=== PATIENT | female | born 1945 | race Caucasian/White ===

== ENCOUNTER 2017-12-19 00:21 | Emergency (ER) | payer BC, OTHER ==
[2017-12-19 00:37] VITALS: BMI 22.8
--- NOTE | 2017-12-19 00:57 | DR.GENAD ---
HPI - PCP Primary Care Physician: Antonette Pelayo - Complaint/Symptoms Chief Complaint Doctors Comments: Son reports that went to the bathroom and was found by hims once he heard a loud noise. She was found laying on her side with no abnormal movement responsive to queston he walked back to the living room and called EMS. The episode lasted less than 3 minutes. 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 Upon arrival to residence, patient was found to be alert. O2 saturation was 98% on room air. Family reports patient had difficulty breathing and confusion with syncopal episode. Patient was transported to hospital for further evaluation. Patient is alert and oriented on arrival to ER and is cooperative. She is a good historian and reports she has been having stomach "trouble" for some time. Patient reports abdominal cramping; however, none tonight. - Source History Provided: EMS - Mode of Arrival Mode of Arrival: Stretcher - Timing Onset of Chief Complaint: 12/19/17 PMH - PMH Past Medical History: Yes Past Medical History: Coronary Artery Disease, Dyslipidemia, Depression, Anxiety , Hypothyroidism, COPD Past Surgical History: Yes Surgical History: Appendectomy, CABG/Valve Surgery, Cholecystectomy, Hysterectomy - Family History History of Family Medical Conditions: Yes Family Medical History: [place], Coronary Artery Disease, Heart Failure, Hypertension - Social History Type of Tobacco Use: None Alcohol Use: None Do you use any recreational Drugs:: No Lives With: Family Lives Where: Home - infectious screening In the last 2 months have you had wt loss of >10#?: NO Have you had fever, night sweats or hemotysis?: No Have you traveled outside the country in the last 6 months?: No Isolation: Standard ROS - Review of Systems Constitutional: No Symptoms Reported Eyes: No Symptoms Reported ENTM: No Symptoms Reported Respiratoy: No Symptoms Reported Cardiovascular: No Symptoms Reported Gastrointestinal/Abdominal: No Symptoms Reported Genitourinary: No Symptoms Reported Neurological: No Symptoms Reported Musculoskeletal: No Symptoms Reported Integumentary: No Symptoms Reported Hematologic/Lymphatic: No Symptoms Reported Endocrine: No Symptoms Reported Psychiatric: No Symptoms Reported All Other Systems: Reviewed and Negative PE - Vital Signs Vitals: Temperature 96.8 F Pulse Rate [Left Brachial] 68 Pulse Rate 66 Respiratory Rate 22 Blood Pressure [Right Arm] 118/59 Blood Pressure [Left Arm] 146/64 Blood Pressure 130/60 O2 Sat by Pulse Oximetry 95 - General Limitations: No Limitations General Appearance: In No Apparent Distress - Head Head Exam: Normal Inspection, Atraumatic - Eyes Eye exam: Normal Appearance, PERRL, EOMI - ENT ENT Exam: Normal Exam External Ear Exam: Normal External Inspection TM/Canal Exam: Bilateral Normal Nose Exam: Normal Nose Exam, Sinus Tenderness Mouth Exam: Normal Inspection Throat Exam: Normal Inspection - Neck Neck Exam: Normal Inspection, Full ROM - Chest Chest Inspection: Normal Inspection - Respiratory Respiratory Exam: Normal Lung Sounds Bilat Respiratory Exam: Bilateral Clear to Auscultation - Cardiovascular Cardiovascular Exam: Regular Rate, Normal Rhythm - Abdominal Exam Abdominal Exam: Normal Inspection, Normal Bowel Sounds Abdominal Tenderness: negative: RUQ, RLQ, LUQ, LLQ, Epigastrium, Suprapubic, Diffuse, Mild, Moderate, Severe, Other - Extremities Extremities Exam: Normal Inspection, Full ROM - Back Back Exam: Normal Inspection - Neurologic Neurological Exam: Alert, Oriented X3, CN II-XII Intact - Psychiatric Psychiatric Exam: Normal Affect - Skin Skin Exam: Warm, Dry, Intact Course - Treatment Treatment: Patient offered admission for observation but declined. Daughter is a nurse, said if anything happens will return. - Reevaluation 1st: Improved ROR - Labs Reviewed Result Diagrams: 12/19/17 01:05 12/19/17 01:05 Laboratory: WBC 6.8 X10^3/uL (3.6-10.0) 12/19/17 01:05 RBC 4.73 X10^6/uL (3.5-5.4) 12/19/17 01:05 Hgb 14.8 g/dL (12.0-16.0) 12/19/17 01:05 Hct 42.9 % (36.0-47.0) 12/19/17 01:05 MCV 90.8 fL (80.0-100.0) 12/19/17 01:05 MCH 31.3 pg (27.0-34.0) 12/19/17 01:05 MCHC 34.5 g/dL (33.0-35.0) 12/19/17 01:05 RDW 13.9 % (11.6-16.5) 12/19/17 01:05 Plt Count 240 X10^3/uL (150.0-450.0) 12/19/17 01:05 MPV 8.3 fL (7.4-11.0) 12/19/17 01:05 Neut % 54.0 % (42.0-75.0) 12/19/17 01:05 Lymph % 34.6 % (21.0-51.0) 12/19/17 01:05 [place]ill % 7.0 % (0.0-13.0) 12/19/17 01:05 Eos % 2.7 % (0.9-2.9) 12/19/17 01:05 Baso % 1.7 % (0.2-1.0) H 12/19/17 01:05 Neut # 3.7 x10^3/uL (2.2-4.8) 12/19/17 01:05 Lymph # 2.4 X10^3/uL (1.3-2.9) 12/19/17 01:05 [place]ill # 0.5 x10^3/uL (0.3-0.8) 12/19/17 01:05 Eos # 0.2 x10^3/uL (0.0-0.2) 12/19/17 01:05 Baso # 0.1 X10^3/uL (0.0-0.1) 12/19/17 01:05 Absolute Nucleated RBC 0.0 /100WBC 12/19/17 01:05 INR Target Range - 12/19/17 01:05 INR 0.92 (0.8-1.3) 12/19/17 01:05 PTT 24.9 SECONDS (22.9-36.5) 12/19/17 01:05 PTT Comment - 12/19/17 01:05 Sodium 143 mmol/L (136-145) 12/19/17 01:05 Corrected Sodium 144 mmol/L (136-145) 12/19/17 01:05 Potassium 3.3 mmol/L (3.5-5.1) L 12/19/17 01:05 Chloride 106 mmol/L (98-107) 12/19/17 01:05 Carbon Dioxide 29.9 mmol/L (21-32) 12/19/17 01:05 BUN 9 mg/dL (7-18) 12/19/17 01:05 Creatinine 0.67 mg/dL (0.55-1.02) 12/19/17 01:05 Est GFR (MDRD) Af Amer > 60 (>60) 12/19/17 01:05 Est GFR (MDRD) Non-Af > 60 (>60) 12/19/17 01:05 Glucose 138 mg/dL (65-99) H 12/19/17 01:05 Calcium 8.1 mg/dL (8.5-10.1) L 12/19/17 01:05 Corrected Calcium 9.0 mg/dL (8.5-10.1) 12/19/17 01:05 Magnesium 2.0 mg/dL (1.7-2.9) 12/19/17 01:05 Total Bilirubin 0.10 mg/dL (0.2-1.0) L 12/19/17 01:05 AST 12 Units/L (15-37) L 12/19/17 01:05 ALT 13 Units/L (12-78) 12/19/17 01:05 Alkaline Phosphatase 73 Units/L (46-116) 12/19/17 01:05 Creatine Kinase 38 Units/L (26-192) 12/19/17 01:05 CK-MB (CK-2) < 1.0 ng/mL (0-4.0) 12/19/17 01:05 CK/CKMB % Calc 2.6 % (<4) 12/19/17 01:05 Troponin I < 0.02 ng/mL (0-1.5) 12/19/17 01:05 C-Reactive Protein 2.20 mg/L (0-3.0) 12/19/17 01:05 Total Protein 6.3 g/dL (6.4-8.2) L 12/19/17 01:05 Albumin 2.9 g/dL (3.4-5.0) L 12/19/17 01:05 Globulin 3.4 g/dL (2.5-4.5) 12/19/17 01:05 Albumin/Globulin Ratio 0.9 Ratio (1.1-2.1) L 12/19/17 01:05 Amylase 32 Units/L (25-115) 12/19/17 01:05 Lipase 151 Units/L (73-393) 12/19/17 01:05 Specimen Type Clean catch urine 12/19/17 01:49 Urine Color Yellow (YELLOW) 12/19/17 01:49 Urine Appearance Clear (CLEAR) 12/19/17 01:49 Urine pH 7.0 (5.0 - 8.0) 12/19/17 01:49 Ur Specific [place] 1.010 (1.000-1.030) 12/19/17 01:49 Urine Protein Negative (NEGATIVE) 12/19/17 01:49 Urine Glucose (UA) Negative (NEGATIVE) 12/19/17 01:49 Urine Ketones Negative (NEGATIVE) 12/19/17 01:49 Urine Occult Blood Negative (NEGATIVE) 12/19/17 01:49 Urine Nitrite Positive (NEGATIVE) 12/19/17 01:49 Urine Bilirubin Negative (NEGATIVE) 12/19/17 01:49 Urine Urobilinogen Normal (NORMAL) 12/19/17 01:49 Ur Leukocyte Esterase 2+ (NEGATIVE) 12/19/17 01:49 Urine RBC None seen /HPF (NEGATIVE) 12/19/17 01:49 Urine WBC 2-6 /HPF (NEGATIVE) 12/19/17 01:49 Ur Squamous Epith Cells Rare /HPF (NEGATIVE) 12/19/17 01:49 Urine Bacteria 3+ /HPF (NEGATIVE) 12/19/17 01:49 Ur Culture Indicated? Yes/culture set up 12/19/17 01:49 H. pylori IgG Antibody Negative (NEGATIVE) 12/19/17 01:05 - XRAY XRAY Interpreted by: Radiologist (CT Brain: There is no intracranial hemorrhage , visible acute infarct, focal or generalized edema, extra-axxial collection, hydrocephalus or mass. There is mild age appropriate cerebral atrophy with proportional comensatory ventricular and sulcal enlargment. Patchy areas of periventricular hypoattenuation are onospecific but likely reporsent mild microangiopathic disease. The visualized paranasal sinuses and mastoid air cells are clear. No acute osseous or soft tissue abnormality is identified.) - Diagnosis Discharge Problem: Syncopal episodes Qualifiers: Syncope type: unspecified Qualified Code(s): R55 - Syncope and collapse - Discharge Plan Condition: Stable - Follow ups/Referrals Follow ups/Referrals: NFD,None [Primary Care Provider] - 3 days - Instructions
[2017-12-19] MEDS ORDERED: NS 1000 ML 1,000 ML ONE (01:21)
[2017-12-19 01:27] LABS: BASOPHILS # (AUTO) 0.1 X10^3/uL (0.0-0.1); BASOPHILS % (AUTO) 1.7 % (0.2-1.0); EOSINOPHILS # (AUTO) 0.2 x10^3/uL (0.0-0.2); EOSINOPHILS % (AUTO) 2.7 % (0.9-2.9); HEMATOCRIT 42.9 % (36.0-47.0); HEMOGLOBIN 14.8 g/dL (12.0-16.0); LYMPHOCYTES # (AUTO) 2.4 X10^3/uL (1.3-2.9); LYMPHOCYTES % (AUTO) 34.6 % (21.0-51.0); MEAN CORPUSCULAR HEMOGLOBIN 31.3 pg (27.0-34.0); MEAN CORPUSCULAR HGB CONC 34.5 g/dL (33.0-35.0); MEAN CORPUSCULAR VOLUME 90.8 fL (80.0-100.0); MEAN PLATELET VOLUME 8.3 fL (7.4-11.0); MONOCYTES # (AUTO) 0.5 x10^3/uL (0.3-0.8); NEUTROPHILS # (AUTO) 3.7 x10^3/uL (2.2-4.8); PLATELET COUNT 240 X10^3/uL (150.0-450.0); RED BLOOD COUNT 4.73 X10^6/uL (3.5-5.4); RED CELL DISTRIBUTION WIDTH 13.9 % (11.6-16.5); WHITE BLOOD COUNT 6.8 X10^3/uL (3.6-10.0)
[2017-12-19 01:34] LABS: BLOOD UREA NITROGEN 9 mg/dL (7-18); CALCIUM 8.1 mg/dL (8.5-10.1); CARBON DIOXIDE 29.9 mmol/L (21-32); CHLORIDE 106 mmol/L (98-107); COR NA(FOR HYPERGLY) 144 mmol/L (136-145); CREATININE 0.67 mg/dL (0.55-1.02); SODIUM 143 mmol/L (136-145); TROPONIN I < 0.02 ng/mL (0-1.5); eGFR BLACK RACES > 60 (>60); eGFR NON BLACK RACES > 60 (>60)
[2017-12-19 01:36] LABS: C-REACTIVE PROTEIN 2.2 mg/L (0-3.0)
[2017-12-19 01:38] LABS: ALANINE AMINOTRANSFERASE 13 Units/L (12-78); ALBUMIN 2.9 g/dL (3.4-5.0); ALKALINE PHOSPHATASE 73 Units/L (46-116); ASPARTATE AMINO TRANSFERASE 12 Units/L (15-37); CKMB % 2.6 % (<4); CREATINE KINASE 38 Units/L (26-192); CREATINE KINASE MB < 1.0 ng/mL (0-4.0); TOTAL PROTEIN 6.3 g/dL (6.4-8.2)
[2017-12-19] MEDS ORDERED: K-LYTE EFFERVESCENT PO ONE (02:00)
[2017-12-19] MEDS ORDERED: NS 1000 ML 1,000 ML IV SCH (02:00)
[2017-12-19] MEDS ORDERED: K-LYTE EFFERVESCENT ONE (02:05)
--- NOTE | 2017-12-19 02:15 | CT ---
CT head without contrast Indication: Difficulty breathing, confusion with syncopal episode Technique: Helical CT images of the brain were obtained without IV contrast. Reformatted images in th e coronal and sagittal planes were also generated for review. Comparison: None Findings: There is no intracranial hemorrhage, visible acute infarct, focal or generalized edema, ext ra-axial collection, hydrocephalus or mass. There is mild age-appropriate cerebral atrophy with propo rtional compensatory ventricular and sulcal enlargement. Patchy areas of periventricular hypoattenuat ion are nonspecific but likely represent mild microangiopathic disease. The visualized paranasal sinu ses and mastoid air cells are clear. No acute osseous or soft tissue abnormality is identified. Impression: No acute intracranial abnormality. Age-appropriate atrophy and mild microangiopathic disease. Reported By:
[2017-12-19 02:22] LABS: BILIRUBIN,URINE NEGATIVE (NEGATIVE); BLOOD/HEMOGLOBIN,URINE NEGATIVE (NEGATIVE); GLUCOSE, URINE NEGATIVE (NEGATIVE); KETONES,URINE NEGATIVE (NEGATIVE); LEUKOCYTE ESTERASE ,URINE 2+ (NEGATIVE); NITRITES,URINE POSITIVE (NEGATIVE); PROTEIN,URINE NEGATIVE (NEGATIVE); UROBILINOGEN,URINE NORMAL (NORMAL)
[2017-12-19 02:27] LABS: APPEARANCE,URINE CLEAR (CLEAR); BACTERIA,URINE 3+ /HPF (NEGATIVE); COLOR,URINE YELLOW (YELLOW); RBC,URINE NONE SEEN /HPF (NEGATIVE); SQUAMOUS EPITHELIAL CELL,UR RARE /HPF (NEGATIVE)
--- NOTE | 2017-12-19 02:59 | RAD ---
Chest, one view Indication: Syncope Comparison: 09/11/2016 Findings: Heart size is normal with prior CABG changes noted. Lungs are again mildly hyperexpanded wi th coarsened interstitial markings, suggestive for COPD. No focal consolidation, significant effusion or pneumothorax is identified. There is no acute osseous abnormality. Impression: COPD without acute cardiopulmonary abnormality. Reported By:
[2017-12-19 03:18] VITALS: BP 116/56
== END 2017-12-19 03:16 | disposition home or self-care (01) ==
LOC: ER 00:21
DX: R55 Syncope and collapse (principal); B96.29 Other Escherichia coli [E. coli] as the cause of diseases classified elsewhere
CPT/HCPCS: 36415; 70450; 71045; 80053; 81001; 82150; 82550; 82553; 83690; 83735; 84484; 85025; 85610; 85730; 86140; 86677; 87086; 87088; 87186; 93005; 93010; 96365; 96367; 99283; 99284

== ENCOUNTER → 2018-03-09 | Outpatient (CLI) | payer OTHER ==
--- NOTE | 2018-03-09 14:54 | MRI ---
HISTORY: Disc degeneration Study: Noncontrast MRI lumbar spine Comparison: Plain radiographs of the lumbar spine done 05/27/2012. Technique: Multiplanar multi-sequence MRI of the lumbar spine was obtained. Sagittal T1, sagittal T2 , and stir weighted images, axial T1, and axial T2 images were obtained. Findings: The lumbar spine demonstrates normal alignment with the expected signal characteristics of the bone m arrow. There is multilevel spondylosis. Is multilevel disc desiccation The conus of the cord terminat es normally. No evidence of paraspinous mass or fluid collection is seen. T12 -- L1: There is bilateral facet joint hypertrophy. No disc protrusion, central spinal stenosis or lateral foraminal stenosis is seen. L1 -- L2: Mild disc space narrowing with bilateral facet joint hypertrophy. No disc protrusion, centr al spinal stenosis or lateral foraminal stenosis is seen. L2 -- L3: Disc space narrowing with concentric disc bulge. In combination with bilateral facet joint and mild ligamentum flavum hypertrophy there is mild central spinal stenosis. No significant lateral foraminal stenosis is seen. L3 -- L4: Disc space narrowing with concentric disc bulge. There is bilateral facet joint and mild li gamentum flavum hypertrophy. Mild-moderate left-sided foraminal stenosis is seen. The right neural fo ramen is patent. L4 -- L5: Concentric disc bulge with bilateral facet joint and ligamentum flavum hypertrophy resultin g in very mild central spinal stenosis and mild-moderate lateral foraminal stenosis more pronounced o n the left side. L5 -- S1: Left-sided subarticular disc protrusion with left-sided foraminal stenosis which is mild-mo derate. No central spinal stenosis is seen. IMPRESSION: Multilevel abnormalities as detailed above. Fracture or subluxation is seen. Reported By:
== END ==
LOC: RAD 13:32
PROVIDERS: ATTEND Nurse Practitioner Family
DX: M51.36 Other intervertebral disc degeneration, lumbar region (principal)
CPT/HCPCS: 72148

== ENCOUNTER 2018-06-04 12:33 | Observation (INO) ==
[2018-06-04] MEDS ORDERED: DUONEB 0.5 MG/3 MG NEB ONE (13:45)
[2018-06-04] MEDS ORDERED: SOLU-Medrol 125 MG VIAL IVP ONE (13:45)
--- NOTE | 2018-06-04 13:47 | DR.GENAD ---
HPI - PCP Primary Care Physician: MATTHEW ORTIZ - Complaint/Symptoms Chief Complaint Doctors Comments: Patient states she passed out last night while on the sofa and her grand daughter was there and called her mother and father and they came over to check on her. Patient states she has been feeling weak and dizzy today. She denies nausea or vomiting but has been having decreased appetite. She denies fever, diarrhea, cold or cough. States she has COPD and has had wheezing and SOB earlier. States she has been having chills with dry mouth. She has been having epigastric tenderness but has not seen any blood in her stool or urine. Chief Complaint:: PT SHE PASSED OUT WHILE LYING DOWN ON WEDNESDAY. SHE STATED SHE IS HAVNG ABD. PAIN, DRY MOUTH, DON'T WANT TO EAT. SHE HAS BEEN HAVING CHILL AND TIRED FOR THE LAST COUPLE OF DAYS. - Nurses notes reviewed Nurses Notes Review: Yes - Source History Provided: Patient - Mode of Arrival Mode of Arrival: Ambulatory - Timing Onset of Chief Complaint: 05/31/18 Came on: Gradually - Duration Duration: Intermittent How lon Duration: Days - Location Location: chest pain - Severity Severity: Mild - Modifying Factors Worsens:: nothing Improves:: nothing PMH - PMH Past Medical History: Yes Past Medical History: Coronary Artery Disease, Dyslipidemia, Depression, Anxiety , Hypothyroidism, COPD Past Surgical History: Yes Surgical History: Appendectomy, CABG/Valve Surgery, Cholecystectomy, Hysterectomy - Family History History of Family Medical Conditions: Yes Family Medical History: [place], Coronary Artery Disease, Heart Failure, Hypertension - Social History Does patient currently use any type of tobacco product: Yes Have you used tobacco products in the last 12 months: Yes Type of Tobacco Use: Cigarettes Does any household member use tobacco: No Alcohol Use: None Do you use any recreational Drugs:: No Lives With: Family Lives Where: Home - infectious screening In the last 2 months have you had wt loss of >10#?: NO Have you had fever, night sweats or hemotysis?: No Have you traveled outside the country in the last 6 months?: No Isolation: Standard ROS - Review of Systems Constitutional: No Symptoms Reported, Chills, Fever, Weakness, Loss of Appetite Eyes: No Symptoms Reported ENTM: No Symptoms Reported Respiratoy: No Symptoms Reported, Dry Cough, Short of Breath, Wheezing Cardiovascular: No Symptoms Reported, Chest Pain, Syncope Gastrointestinal/Abdominal: No Symptoms Reported, Abdominal Pain. negative: See HPI, Constipation, Diarrhea, Nausea, Vomiting, Food Intolerance, Other Genitourinary: No Symptoms Reported, Dysuria. negative: See HPI, Discharge, Frequency, Hematuria, Pain, Bleeding, Other Neurological: No Symptoms Reported Musculoskeletal: No Symptoms Reported Integumentary: No Symptoms Reported Hematologic/Lymphatic: No Symptoms Reported. negative: See HPI, Anemia, Blood Clots, Easy Bleeding, Easy Bruising, Swollen Glands, Lymphadenopathy, Other Endocrine: No Symptoms Reported Psychiatric: No Symptoms Reported. negative: See HPI, Anxiety, Depression, Hallucinations, Excessive crying, Suicidal, Other PE - General Limitations: No Limitations General Appearance: Alert, In Distress (moderate), Cachectic - Head Head Exam: Normal Inspection, Atraumatic, Normocephalic - Eyes Eye exam: Normal Appearance, PERRL, EOMI. negative: Scleral Icterus, Conjunctival Injection, Nystagmus, Miosis, Mydrasis, Periorbital Swelling, Periorbital Tenderness, Other - ENT ENT Exam: Normal Exam, Normal Oropharynx, Normal External Ear Exam, Mucous Membranes Moist, TM's Normal Bilaterally External Ear Exam: Normal External Inspection TM/Canal Exam: Bilateral Normal Nose Exam: Normal Nose Exam Mouth Exam: Normal Inspection. negative: Drooling, Trismus, Lip Swelling, Tongue Elevation, Tongue Swelling, Laceration, Other Throat Exam: Normal Inspection. negative: Tonsillar Erythema, Tonsillomegaly, Tonsillar Exudate, R Peritonsillar Mass, L Peritonsillar Mass, Muffled Voice, Other - Neck Neck Exam: Normal Inspection, Full ROM, Trachea Midline. negative: Tenderness, Meningismus, Lymphadenopathy, Thyromegaly, Other - Chest Chest Inspection: Normal Inspection, Symmetric Chest Wall Rise - Respiratory Respiratory Exam: Normal Lung Sounds Bilat Respiratory Exam: Bilateral Clear to Auscultation, Bilateral Wheezing, Bilateral Rhonchi - Cardiovascular Cardiovascular Exam: Regular Rate, Normal Rhythm, Normal Heart Sounds, Systolic Murmur - Abdominal Exam Abdominal Exam: Normal Inspection, Normal Bowel Sounds, Soft, Tenderness ( epigastric tenderness) Abdominal Tenderness: Epigastrium, Moderate - Extremities Extremities Exam: Normal Inspection, Full ROM, Normal Capillary Refill. negative: Tenderness, Edema, Joint Swelling, Calf Tenderness, Other - Back Back Exam: Normal Inspection, Full ROM. negative: Tenderness, (R) CVA Tenderness, (L) CVA Tenderness, Muscle Spasm, Paraspinal Tenderness, Vertebral Tenderness, Rashes, (R) Sciatic Notch Tenderness, (L) Sciatic Notch Tendern, (R ) Straight Leg Raise, (L) Straight Leg Raise, Other - Neurologic Neurological Exam: Alert, Oriented X3, CN II-XII Intact, Normal Gait, Reflexes Normal - Psychiatric Psychiatric Exam: Normal Affect, Normal Mood, Depressed. negative: Agitated, Anxious, Flat Affect, Manic, Homicidal Ideation, Suicidal Ideation, Other - Skin Skin Exam: Warm, Dry, Intact, Normal Color - Vital Signs Vitals: Temperature 96.7 F Pulse Rate [Standing] 83 Pulse Rate [Sitting] 83 Pulse Rate [Lying] 79 Pulse Rate 110 Respiratory Rate 20 Blood Pressure [Right Arm] 116/56 Blood Pressure [Left Arm] 146/64 Blood Pressure [Standing] 114/61 Blood Pressure [Sitting] 107/59 Blood Pressure [Lying] 118/58 Blood Pressure 126/59 O2 Sat by Pulse Oximetry 98 Course - Consultation Called: 19:26 Call Returned: 19:26 (Dr. Cobian to admit) - Education/Counseling Education/Counseling: Patient, Family Educated On: Treatment, Diagnosis, Needs for Follow Up ROR - Labs Reviewed Laboratory Results Reviewed?: Yes (All labs and x-ray results reviewed and discussed with patient.) Result Diagrams: 06/04/18 14:11 06/04/18 14:11 - XRAY XRAY Interpreted by: Radiologist (CT brain: No acute intracranial process. CT chest: Diffuse emphysematous changes without acute cardiopulmonary disease.) XRAY Findings: CXR: No change; no acute findings. Suggestion of COPD and mild peribronch - Labs Reviewed Laboratory: WBC 4.8 X10^3/uL (3.6-10.0) 06/04/18 14:11 RBC 4.87 X10^6/uL (3.5-5.4) 06/04/18 14:11 Hgb 15.7 g/dL (12.0-16.0) 06/04/18 14:11 Hct 44.1 % (36.0-47.0) 06/04/18 14:11 MCV 90.5 fL (80.0-100.0) 06/04/18 14:11 MCH 32.2 pg (27.0-34.0) 06/04/18 14:11 MCHC 35.5 g/dL (33.0-35.0) H 06/04/18 14:11 RDW 13.0 % (11.6-16.5) 06/04/18 14:11 Plt Count 239 X10^3/uL (150.0-450.0) 06/04/18 14:11 MPV 8.3 fL (7.4-11.0) 06/04/18 14:11 Neut % (Auto) 53.9 % (42.0-75.0) 06/04/18 14:11 Lymph % (Auto) 32.6 % (21.0-51.0) 06/04/18 14:11 [place] % (Auto) 12.2 % (0.0-13.0) 06/04/18 14:11 Eos % (Auto) 0.3 % (0.9-2.9) L 06/04/18 14:11 Baso % (Auto) 1.0 % (0.2-1.0) 06/04/18 14:11 Neut # (Auto) 2.6 x10^3/uL (2.2-4.8) 06/04/18 14:11 Lymph # (Auto) 1.6 X10^3/uL (1.3-2.9) 06/04/18 14:11 [place] # (Auto) 0.6 x10^3/uL (0.3-0.8) 06/04/18 14:11 Eos # (Auto) 0.0 x10^3/uL (0.0-0.2) 06/04/18 14:11 Baso # (Auto) 0.0 X10^3/uL (0.0-0.1) 06/04/18 14:11 Absolute Nucleated RBC 0.0 /100WBC 06/04/18 14:11 INR Target Range - 06/04/18 14:11 INR 0.95 (0.8-1.3) 06/04/18 14:11 APTT 25.5 SECONDS (22.9-36.5) 06/04/18 14:11 PTT Comment - 06/04/18 14:11 D-Dimer 961 ng/mL (0-400) H* 06/04/18 14:11 Sodium 137 mmol/L (136-145) 06/04/18 14:11 Corrected Sodium TNP 06/04/18 14:11 Potassium 3.4 mmol/L (3.5-5.1) L 06/04/18 14:11 Chloride 101 mmol/L (98-107) 06/04/18 14:11 Carbon Dioxide 31.4 mmol/L (21-32) 06/04/18 14:11 BUN 8 mg/dL (7-18) 06/04/18 14:11 Creatinine 0.79 mg/dL (0.55-1.02) 06/04/18 14:11 Est GFR (MDRD) Af Amer > 60 (>60) 06/04/18 14:11 Est GFR (MDRD) Non-Af > 60 (>60) 06/04/18 14:11 Glucose 97 mg/dL (65-99) 06/04/18 14:11 Calcium 9.4 mg/dL (8.5-10.1) 06/04/18 14:11 Corrected Calcium TNP 06/04/18 14:11 Magnesium 2.2 mg/dL (1.7-2.9) 06/04/18 14:11 Total Bilirubin 0.40 mg/dL (0.2-1.0) 06/04/18 14:11 AST 18 Units/L (15-37) 06/04/18 14:11 ALT 19 Units/L (12-78) 06/04/18 14:11 Alkaline Phosphatase 67 Units/L (46-116) 06/04/18 14:11 Creatine Kinase 34 Units/L (26-192) 06/04/18 14:11 CK-MB (CK-2) < 1.0 ng/mL (0-4.0) 06/04/18 14:11 CK/CKMB % Calc 2.9 % (<4) 06/04/18 14:11 Troponin I < 0.02 ng/mL (0-1.5) 06/04/18 14:11 Total Protein 7.3 g/dL (6.4-8.2) 06/04/18 14:11 Albumin 3.4 g/dL (3.4-5.0) 06/04/18 14:11 Globulin 3.9 g/dL (2.5-4.5) 06/04/18 14:11 Albumin/Globulin Ratio 0.9 Ratio (1.1-2.1) L 06/04/18 14:11 Free T4 1.63 ng/dL (0.76-1.46) H 06/04/18 14:11 TSH 3rd Generation 1.729 uIU/mL (0.358-3.74) 06/04/18 14:11 H. pylori IgG Antibody Negative (NEGATIVE) 06/04/18 14:11 - Diagnosis Discharge Problem: Syncope, Orthostatic hypotension, COPD (chronic obstructive pulmonary disease) , Hypothyroidism, Hypokalemia, Ventricular trigeminy - Discharge Plan Disposition: ADMITTED INPATIENT Condition: Stable - Follow ups/Referrals Follow ups/Referrals: MATTHEW ORTIZ [Primary Care Provider] - 3 days - Instructions
[2018-06-04] MEDS ORDERED: LEVSIN/MAALOX/LIDOC VISC PO ONE (13:52)
[2018-06-04] MEDS ORDERED: LEVSIN/MAALOX/LIDOC VISC ONE (14:01)
[2018-06-04] MEDS ORDERED: SOLU-Medrol 125 MG VIAL ONE (14:01)
--- NOTE | 2018-06-04 14:08 | CT ---
HISTORY: Syncope Study: CT brain without contrast Comparison: 12/19/2017 Technique: Multiple axial images of the brain were obtained from the skull base to the vertex without administra tion of IV contrast. Findings: No acute intraparenchymal hemorrhage or mass can be identified. No extra-axial fluid collections are seen. No alteration in the attenuation of the brain parenchyma can be identified to suggest acute o r subacute ischemic change. The ventricular system is symmetric and nondilated. The extracranial st ructures are grossly unremarkable. IMPRESSION: 1. No acute intracranial process can be identified. Reported By:
--- NOTE | 2018-06-04 14:10 | RAD ---
Examination: AP chest History: Chest pain Comparison reference 12/19/2017 Findings: Continued normal heart size with surgical findings of CABG. The lungs remain hyperaerated w ith diffuse coarsening of the interstitial pulmonary pattern. No consolidation, pneumothorax or pleur al fluid. Impression: No change; no acute findings. Suggestion of COPD and mild stable peribronchial fibrosis. Reported By:
[2018-06-04 14:19] LABS: EOSINOPHILS % (AUTO) 0.3 % (0.9-2.9); HEMATOCRIT 44.1 % (36.0-47.0); HEMOGLOBIN 15.7 g/dL (12.0-16.0); LYMPHOCYTES # (AUTO) 1.6 X10^3/uL (1.3-2.9); LYMPHOCYTES % (AUTO) 32.6 % (21.0-51.0); MEAN CORPUSCULAR HEMOGLOBIN 32.2 pg (27.0-34.0); MEAN CORPUSCULAR HGB CONC 35.5 g/dL (33.0-35.0); MEAN CORPUSCULAR VOLUME 90.5 fL (80.0-100.0); MEAN PLATELET VOLUME 8.3 fL (7.4-11.0); MONOCYTES # (AUTO) 0.6 x10^3/uL (0.3-0.8); MONOCYTES % (AUTO) 12.2 % (0.0-13.0); NEUTROPHILS # (AUTO) 2.6 x10^3/uL (2.2-4.8); NEUTROPHILS % (AUTO) 53.9 % (42.0-75.0); PLATELET COUNT 239 X10^3/uL (150.0-450.0); RED BLOOD COUNT 4.87 X10^6/uL (3.5-5.4); WHITE BLOOD COUNT 4.8 X10^3/uL (3.6-10.0)
[2018-06-04 14:37] LABS: BLOOD UREA NITROGEN 8 mg/dL (7-18); CALCIUM 9.4 mg/dL (8.5-10.1); CARBON DIOXIDE 31.4 mmol/L (21-32); CHLORIDE 101 mmol/L (98-107); CREATININE 0.79 mg/dL (0.55-1.02); SODIUM 137 mmol/L (136-145); TROPONIN I < 0.02 ng/mL (0-1.5); eGFR NON BLACK RACES > 60 (>60)
[2018-06-04 14:42] LABS: ALANINE AMINOTRANSFERASE 19 Units/L (12-78); ALBUMIN 3.4 g/dL (3.4-5.0); ALKALINE PHOSPHATASE 67 Units/L (46-116); ASPARTATE AMINO TRANSFERASE 18 Units/L (15-37); CREATINE KINASE 34 Units/L (26-192); CREATINE KINASE MB < 1.0 ng/mL (0-4.0); FREE T4 (FREE THYROXINE) 1.63 ng/dL (0.76-1.46); MAGNESIUM 2.2 mg/dL (1.7-2.9); TOTAL PROTEIN 7.3 g/dL (6.4-8.2); TSH (3RD GENERATION) 1.729 uIU/mL (0.358-3.74)
[2018-06-04] MEDS: NS 1000 ML 1,000 ML IV SCH (14:44)
[2018-06-04] MEDS ORDERED: DUONEB 0.5 MG/3 MG ONE (14:44)
[2018-06-04 14:45] LABS: CKMB % 2.9 % (<4)
[2018-06-04] MEDS ORDERED: NS 100 ML IV + SPIKE MINIBAG* 100 ML IV ONE (15:07)
--- NOTE | 2018-06-04 15:46 | CT ---
HISTORY: Syncope Study: CT chest with contrast Comparison: None Technique: Multiple axial images of the chest were obtained from the thoracic inlet to the upper abdo men after the administration of IV contrast. Findings: The mediastinum does not demonstrate significant pathological lymphadenopathy. There is no paracardi al effusion observed. The thoracic aorta is normal in its contour without evidence for aneurysmal di latation. The central pulmonary arterial system does not demonstrate central filling defects to sugg est pulmonary emboli. Evaluation of the lung parenchyma demonstrates diffuse emphysematous lung changes within the right an d left apical lung zone.. No pulmonary nodule or mass can be identified. The bony thorax is unremar kable in its appearance. The visualized portions of the upper abdomen are grossly unremarkable. IMPRESSION: Diffuse emphysematous lung changes without acute cardiopulmonary disease otherwise identified. Reported By:
[2018-06-04] MEDS ORDERED: K-LYTE EFFERVESCENT PO STA (19:28)
[2018-06-04] MEDS ORDERED: ZITHROMAX TAB 250 MG PO ONE (19:31)
[2018-06-04 20:22] LABS: CHOL/HDL RATIO 3.1 (0.0-5.0)
[2018-06-04] MEDS: DUONEB 0.5 MG/3 MG NEB SCH (21:30)
[2018-06-04] MEDS: PROTONIX INJ 40 MG VIAL IVP SCH (23:22)
[2018-06-04] MEDS ORDERED: LORAZEPAM 1 MG PO PRN (23:32)
[2018-06-04] MEDS ORDERED: NORCO 10/325 TAB PO PRN (23:32)
[2018-06-04] MEDS ORDERED: ATIVAN TAB 1 MG ONE (23:35)
[2018-06-04] MEDS: ATIVAN TAB 1 MG PO PRN (23:36)
[2018-06-05] MEDS: DUONEB 0.5 MG/3 MG NEB SCH ×6 (00:20→20:49)
[2018-06-05] MEDS: SYNTHROID 88 mcg TAB PO SCH (06:24)
[2018-06-05 06:56] LABS: BASOPHILS % (AUTO) 0.2 % (0.2-1.0); EOSINOPHILS % (AUTO) 0.1 % (0.9-2.9); HEMATOCRIT 39.1 % (36.0-47.0); HEMOGLOBIN 13.7 g/dL (12.0-16.0); LYMPHOCYTES # (AUTO) 1.2 X10^3/uL (1.3-2.9); LYMPHOCYTES % (AUTO) 22.6 % (21.0-51.0); MEAN CORPUSCULAR HEMOGLOBIN 31.5 pg (27.0-34.0); MEAN CORPUSCULAR HGB CONC 35.1 g/dL (33.0-35.0); MEAN CORPUSCULAR VOLUME 89.8 fL (80.0-100.0); MEAN PLATELET VOLUME 8.8 fL (7.4-11.0); MONOCYTES # (AUTO) 0.6 x10^3/uL (0.3-0.8); NEUTROPHILS # (AUTO) 3.3 x10^3/uL (2.2-4.8); NEUTROPHILS % (AUTO) 65.1 % (42.0-75.0); PLATELET COUNT 238 X10^3/uL (150.0-450.0); RED BLOOD COUNT 4.36 X10^6/uL (3.5-5.4); RED CELL DISTRIBUTION WIDTH 12.9 % (11.6-16.5); WHITE BLOOD COUNT 5.1 X10^3/uL (3.6-10.0)
[2018-06-05 07:47] LABS: BLOOD UREA NITROGEN 8 mg/dL (7-18); CALCIUM 9.1 mg/dL (8.5-10.1); CARBON DIOXIDE 28.7 mmol/L (21-32); CHLORIDE 103 mmol/L (98-107); CREATININE 0.73 mg/dL (0.55-1.02); SODIUM 139 mmol/L (136-145); eGFR NON BLACK RACES > 60 (>60)
[2018-06-05] MEDS ORDERED: POTASSIUM CHLORIDE LIQ 20 MEQ UDC PO PRN (08:07)
[2018-06-05] MEDS ORDERED: K-RIDER 10 MEQ/NS 100 ML 10 MEQ/100 ML BAG IV PRN (08:07)
[2018-06-05] MEDS ORDERED: POTASSIUM CHL 60 MEQ/NS 0.45% 500 ML IV PRN (08:07)
[2018-06-05] MEDS ORDERED: K-LYTE EFFERVESCENT PO PRN (08:07)
[2018-06-05] MEDS ORDERED: POTASSIUM CHL 40 MEQ/NS 0.45% 500 ML IV PRN (08:07)
[2018-06-05] MEDS: NS 1000 ML 1,000 ML IV SCH ×3 (09:52→23:08)
[2018-06-05] MEDS: CELEXA PO SCH (09:53)
[2018-06-05] MEDS: PROTONIX INJ 40 MG VIAL IVP SCH ×2 (09:54→21:18)
[2018-06-05] MEDS: ASPIRIN PO SCH (09:54)
[2018-06-05] MEDS: SOLU-Medrol 40 MG VIAL IVP SCH ×2 (10:02→16:40)
[2018-06-05] MEDS: ATIVAN TAB 1 MG PO PRN ×2 (16:41→23:48)
--- NOTE | 2018-06-05 23:12 | DR.H&P ---
H&P - History & Physical for Day of: H&P Date: 06/04/18 - Chief Complaint Chief Complaint: PASSED OUT WHILE LAYING DOWN - History of Present Illness History of Present Illness: Patient states she passed out last night while on the sofa witnessed by her grand daughter. States she had upper epigastric pain, nausea and SOB when episode occurred. States she tried eating piece of bread and thats when she passed out. States that her heart did feel like it raced. Patient states she has been feeling weak and dizzy. States she had similar episode in November. Is followed by Dr Núñez, Cardiology in [place]. Has history of CABG 1997. States she has yearly stress test. Next visit is in [facility]. - Past Medical History Past Medical History: Coronary Artery Disease, Dyslipidemia, Depression, Anxiety , Hypothyroidism, COPD - Past Surgical History Surgical History: Appendectomy, CABG/Valve Surgery, Cholecystectomy, Hysterectomy - Family History Family Medical History: Coronary Artery Disease, Heart Failure, Hypertension - Social History Does patient currently use any type of tobacco product: Yes Have you used tobacco products in the last 12 months: Yes Type of Tobacco Use: Cigarettes How many years tobacco product used: 58 Does any household member use tobacco: No Alcohol Use: None Drug Use: None - Medications Home Medications: Sulfa (Sulfonamide Antibiotics) [SULFA] Allergy (Verified 12/19/17 00:40) CONTINUE taking the following medications levothyroxine [Synthroid] 1 tab PO DAILY 06/04/18 [History] - Review of Systems Constitutional: Weakness Eyes: No Symptoms Reported ENT: No Symptoms Reported Respiratory: Shortness of Breath Cardiovascular: Palpitations, Light Headedness Gastrointestinal: No Symptoms Reported Genitourinary: No Symptoms Reported Musculoskeletal: No Symptoms Reported Skin: No Symptoms Reported Neurological: No Symptoms Reported - Physical Exam Vital Signs: Temperature 97.8 F Pulse Rate [Radial] 77 Pulse Rate [Standing] 83 Pulse Rate [Sitting] 83 Pulse Rate [Lying] 79 Pulse Rate 70 Respiratory Rate 20 Blood Pressure [Right Arm] 122/60 Blood Pressure [Left Arm] 126/58 Blood Pressure [Standing] 114/61 Blood Pressure [Sitting] 107/59 Blood Pressure [Lying] 118/58 Blood Pressure 126/59 O2 Sat by Pulse Oximetry 97 Oriented: Normal Eyes: Normal Ear: Normal Nose: Normal Throat: Normal Respiratory: Clear Throughout Cardiovascular: Normal : Normal Auscultation: Bowel Sounds: Normal Palpation: Normal Tenderness: Normal Skin: Normal Musculoskeletal: Normal Psychiatric: Normal Mood Description: Calm Affect: Normal Speech Pattern: Clear - Assessment/Plan (1) CAD (coronary artery disease) Status: Chronic Plan: monitor BP, Telemetry (2) Hypertension Qualifiers: Hypertension type: essential hypertension Qualified Code(s): I10 - Essential (primary) hypertension Status: Chronic Plan: Monitor BP (3) Syncopal episodes Status: Acute Plan: Telemetry (4) Hypokalemia Status: Acute Plan: monitor labs, supplemental kcl (5) Ventricular trigeminy Status: Acute Plan: telemetry - Allergies Allergies/Adverse Reactions: Allergies Allergy/AdvReac Type Severity Reaction Status Date / Time Sulfa (Sulfonamide Allergy Verified 12/19/17 00:40 Antibiotics) [SULFA]
--- NOTE | 2018-06-05 23:16 | PCM.PROG ---
Progress Note - Progress Note for Day of Date of Exam: 06/05/18 - Subjective Subjective: Patient states she passed out last night while on the sofa witnessed by her grand daughter. States she had upper epigastric pain, nausea and SOB when episode occurred. States she tried eating piece of bread and thats when she passed out. States that her heart did feel like it raced. Patient states she has been feeling weak and dizzy. States she had similar episode in November. Is followed by Dr Núñez, Cardiology in [place]. Has history of CABG 1997. States she has yearly stress test. Next visit is in October. States she is feeling better. Does not want to be transferred due to vehicle issues. - Past Medical Family Social History Past Med/Fam/Surg Hx: No changes since H&P Allergies: Allergies Sulfa (Sulfonamide Antibiotics) [SULFA] Allergy (Verified 12/19/17 00:40) - Review of Systems ROS: No change since H&P - Vital Signs and I&O's Vital Signs: Temperature 97.8 F Pulse Rate [Radial] 77 Pulse Rate [Standing] 83 Pulse Rate [Sitting] 83 Pulse Rate [Lying] 79 Pulse Rate 70 Respiratory Rate 20 Blood Pressure [Right Arm] 122/60 Blood Pressure [Left Arm] 126/58 Blood Pressure [Standing] 114/61 Blood Pressure [Sitting] 107/59 Blood Pressure [Lying] 118/58 Blood Pressure 126/59 O2 Sat by Pulse Oximetry 97 Intake and Output: Intake & Output 06/03/18 06/04/18 06/05/18 06/06/18 11:59 11:59 11:59 11:59 Intake Total 420 / 420 2502 / 2502 Output Total 0 / 0 Balance 420 / 420 2502 / 2502 - Physical Exam Oriented: Normal Eyes: Normal Ear: Normal Nose: Normal Throat: Normal Respiratory: Normal Cardiovascular: Normal : Normal Auscultation: Bowel Sounds: Normal Palpation: Normal Tenderness: Normal Skin: Normal Musculoskeletal: Normal Psychiatric: Normal Mood Description: Calm Affect: Normal Speech Pattern: Clear - Laboratory and Diagnostics Result Diagrams: 06/05/18 05:40 06/05/18 05:40 Labs: Laboratory WBC 5.1 X10^3/uL (3.6-10.0) 06/05/18 05:40 RBC 4.36 X10^6/uL (3.5-5.4) 06/05/18 05:40 Hgb 13.7 g/dL (12.0-16.0) D 06/05/18 05:40 Hct 39.1 % (36.0-47.0) 06/05/18 05:40 MCV 89.8 fL (80.0-100.0) 06/05/18 05:40 MCH 31.5 pg (27.0-34.0) 06/05/18 05:40 MCHC 35.1 g/dL (33.0-35.0) H 06/05/18 05:40 RDW 12.9 % (11.6-16.5) 06/05/18 05:40 Plt Count 238 X10^3/uL (150.0-450.0) 06/05/18 05:40 MPV 8.8 fL (7.4-11.0) 06/05/18 05:40 Neut % (Auto) 65.1 % (42.0-75.0) 06/05/18 05:40 Lymph % (Auto) 22.6 % (21.0-51.0) 06/05/18 05:40 [place] % (Auto) 12.0 % (0.0-13.0) 06/05/18 05:40 Eos % (Auto) 0.1 % (0.9-2.9) L 06/05/18 05:40 Baso % (Auto) 0.2 % (0.2-1.0) 06/05/18 05:40 Neut # (Auto) 3.3 x10^3/uL (2.2-4.8) 06/05/18 05:40 Lymph # (Auto) 1.2 X10^3/uL (1.3-2.9) L 06/05/18 05:40 [place] # (Auto) 0.6 x10^3/uL (0.3-0.8) 06/05/18 05:40 Eos # (Auto) 0.0 x10^3/uL (0.0-0.2) 06/05/18 05:40 Baso # (Auto) 0.0 X10^3/uL (0.0-0.1) 06/05/18 05:40 Absolute Nucleated RBC 0.1 /100WBC 06/05/18 05:40 INR Target Range - 06/04/18 14:11 INR 0.95 (0.8-1.3) 06/04/18 14:11 APTT 25.5 SECONDS (22.9-36.5) 06/04/18 14:11 PTT Comment - 06/04/18 14:11 D-Dimer 961 ng/mL (0-400) H* 06/04/18 14:11 Sodium 139 mmol/L (136-145) 06/05/18 05:40 Corrected Sodium TNP 06/05/18 05:40 Potassium 2.9 mmol/L (3.5-5.1) L* 06/05/18 05:40 Chloride 103 mmol/L (98-107) 06/05/18 05:40 Carbon Dioxide 28.7 mmol/L (21-32) 06/05/18 05:40 BUN 8 mg/dL (7-18) 06/05/18 05:40 Creatinine 0.73 mg/dL (0.55-1.02) 06/05/18 05:40 Est GFR (MDRD) Af Amer > 60 (>60) 06/05/18 05:40 Est GFR (MDRD) Non-Af > 60 (>60) 06/05/18 05:40 Glucose 93 mg/dL (65-99) 06/05/18 05:40 Calcium 9.1 mg/dL (8.5-10.1) 06/05/18 05:40 Corrected Calcium TNP 06/04/18 14:11 Magnesium 2.2 mg/dL (1.7-2.9) 06/05/18 05:40 Total Bilirubin 0.40 mg/dL (0.2-1.0) 06/04/18 14:11 AST 18 Units/L (15-37) 06/04/18 14:11 ALT 19 Units/L (12-78) 06/04/18 14:11 Alkaline Phosphatase 67 Units/L (46-116) 06/04/18 14:11 Creatine Kinase 34 Units/L (26-192) 06/04/18 14:11 CK-MB (CK-2) < 1.0 ng/mL (0-4.0) 06/04/18 14:11 CK/CKMB % Calc 2.9 % (<4) 06/04/18 14:11 Troponin I < 0.02 ng/mL (0-1.5) 06/04/18 14:11 Total Protein 7.3 g/dL (6.4-8.2) 06/04/18 14:11 Albumin 3.4 g/dL (3.4-5.0) 06/04/18 14:11 Globulin 3.9 g/dL (2.5-4.5) 06/04/18 14:11 Albumin/Globulin Ratio 0.9 Ratio (1.1-2.1) L 06/04/18 14:11 Triglycerides 119 mg/dL (0-150) 06/04/18 13:47 Cholesterol 193 mg/dL (0-200) 06/04/18 13:47 LDL Cholesterol, Calc 106 mg/dL (0-100) H 06/04/18 13:47 HDL Cholesterol 63 mg/dL (40-60) H 06/04/18 13:47 Cholesterol/HDL Ratio 3.1 (0.0-5.0) 06/04/18 13:47 Free T4 1.63 ng/dL (0.76-1.46) H 06/04/18 14:11 TSH 3rd Generation 1.729 uIU/mL (0.358-3.74) 06/04/18 14:11 H. pylori IgG Antibody Negative (NEGATIVE) 06/04/18 14:11 - Plan (1) CAD (coronary artery disease) Status: Chronic Plan: monitor BP, Telemetry (2) Hypertension Status: Chronic Qualifiers: Hypertension type: essential hypertension Qualified Code(s): I10 - Essential (primary) hypertension Plan: Monitor BP (3) Syncopal episodes Status: Acute Plan: Telemetry (4) Hypokalemia Status: Acute Plan: monitor labs, supplemental kcl (5) Ventricular trigeminy Status: Acute Plan: telemetry
[2018-06-06] MEDS: DUONEB 0.5 MG/3 MG NEB SCH ×4 (00:17→12:06)
[2018-06-06] MEDS: SOLU-Medrol 40 MG VIAL IVP SCH ×3 (01:00→21:27)
[2018-06-06] MEDS: SYNTHROID 88 mcg TAB PO SCH (05:22)
[2018-06-06 06:34] LABS: BASOPHILS % (AUTO) 0.1 % (0.2-1.0); HEMATOCRIT 37.4 % (36.0-47.0); HEMOGLOBIN 13.2 g/dL (12.0-16.0); LYMPHOCYTES # (AUTO) 0.7 X10^3/uL (1.3-2.9); LYMPHOCYTES % (AUTO) 12.3 % (21.0-51.0); MEAN CORPUSCULAR HGB CONC 35.3 g/dL (33.0-35.0); MEAN CORPUSCULAR VOLUME 90.7 fL (80.0-100.0); MONOCYTES # (AUTO) 0.3 x10^3/uL (0.3-0.8); MONOCYTES % (AUTO) 5.6 % (0.0-13.0); NEUTROPHILS # (AUTO) 4.6 x10^3/uL (2.2-4.8); PLATELET COUNT 205 X10^3/uL (150.0-450.0); RED BLOOD COUNT 4.12 X10^6/uL (3.5-5.4); RED CELL DISTRIBUTION WIDTH 12.8 % (11.6-16.5); WHITE BLOOD COUNT 5.6 X10^3/uL (3.6-10.0)
[2018-06-06 06:48] LABS: ALANINE AMINOTRANSFERASE 13 Units/L (12-78); ALBUMIN 2.8 g/dL (3.4-5.0); ALKALINE PHOSPHATASE 58 Units/L (46-116); ASPARTATE AMINO TRANSFERASE 13 Units/L (15-37); BLOOD UREA NITROGEN 10 mg/dL (7-18); CALCIUM 8.5 mg/dL (8.5-10.1); CARBON DIOXIDE 26.2 mmol/L (21-32); CHLORIDE 107 mmol/L (98-107); COR CA(FOR HYPOALB) 9.5 mg/dL (8.5-10.1); COR NA(FOR HYPERGLY) 142 mmol/L (136-145); SODIUM 141 mmol/L (136-145); TOTAL PROTEIN 6.4 g/dL (6.4-8.2); eGFR NON BLACK RACES > 60 (>60)
[2018-06-06 08:17] VITALS: BMI 23.2
[2018-06-06] MEDS: NS 1000 ML 1,000 ML IV SCH ×3 (08:40→21:29)
[2018-06-06] MEDS: ASPIRIN PO SCH (08:42)
[2018-06-06] MEDS: CELEXA PO SCH (08:42)
[2018-06-06] MEDS: PROTONIX INJ 40 MG VIAL IVP SCH ×2 (08:42→21:27)
[2018-06-06] MEDS: ATIVAN TAB 1 MG PO PRN ×2 (13:06→21:26)
--- NOTE | 2018-06-06 22:28 | PCM.PROG ---
Progress Note - Progress Note for Day of Date of Exam: 06/06/18 - Subjective Subjective: Patient states she passed out last night while on the sofa witnessed by her grand daughter. States she had upper epigastric pain, nausea and SOB when episode occurred. States she tried eating piece of bread and thats when she passed out. States that her heart did feel like it raced. Patient states she has been feeling weak and dizzy. States she had similar episode in November. Is followed by Dr Núñez, Cardiology in [place]. Has history of CABG 1997. States she has yearly stress test. Next visit is in October. States she is feeling better. Is agreeable for transfer. - Past Medical Family Social History Past Med/Fam/Surg Hx: No changes since H&P Allergies: Allergies Sulfa (Sulfonamide Antibiotics) [SULFA] Allergy (Verified 12/19/17 00:40) - Review of Systems ROS: No change since H&P - Vital Signs and I&O's Vital Signs: Temperature 98.6 F Pulse Rate [Radial] 73 Pulse Rate [Standing] 83 Pulse Rate [Sitting] 83 Pulse Rate [Lying] 79 Pulse Rate 70 Respiratory Rate 20 Blood Pressure [Right Arm] 130/62 Blood Pressure [Left Arm] 150/72 Blood Pressure [Standing] 114/61 Blood Pressure [Sitting] 107/59 Blood Pressure [Lying] 118/58 Blood Pressure 126/59 O2 Sat by Pulse Oximetry 94 Intake and Output: Intake & Output 06/04/18 06/05/18 06/06/18 06/07/18 11:59 11:59 11:59 11:59 Intake Total 420 / 420 3582 / 3582 1805 / 1805 Output Total 0 / 0 700 / 700 2500 / 2500 Balance 420 / 420 2882 / 2882 -695 / -695 - Physical Exam Oriented: Normal Eyes: Normal Ear: Normal Nose: Normal Throat: Normal Respiratory: Normal Cardiovascular: Normal : Normal Auscultation: Bowel Sounds: Normal Palpation: Normal Tenderness: Normal Skin: Normal Musculoskeletal: Normal Psychiatric: Normal Mood Description: Calm Affect: Normal Speech Pattern: Clear - Laboratory and Diagnostics Result Diagrams: 06/06/18 05:51 06/06/18 05:51 Labs: Laboratory WBC 5.6 X10^3/uL (3.6-10.0) 06/06/18 05:51 RBC 4.12 X10^6/uL (3.5-5.4) 06/06/18 05:51 Hgb 13.2 g/dL (12.0-16.0) 06/06/18 05:51 Hct 37.4 % (36.0-47.0) 06/06/18 05:51 MCV 90.7 fL (80.0-100.0) 06/06/18 05:51 MCH 32.0 pg (27.0-34.0) 06/06/18 05:51 MCHC 35.3 g/dL (33.0-35.0) H 06/06/18 05:51 RDW 12.8 % (11.6-16.5) 06/06/18 05:51 Plt Count 205 X10^3/uL (150.0-450.0) 06/06/18 05:51 MPV 9.0 fL (7.4-11.0) 06/06/18 05:51 Neut % (Auto) 82.0 % (42.0-75.0) H 06/06/18 05:51 Lymph % (Auto) 12.3 % (21.0-51.0) L 06/06/18 05:51 [place] % (Auto) 5.6 % (0.0-13.0) 06/06/18 05:51 Eos % (Auto) 0.0 % (0.9-2.9) L 06/06/18 05:51 Baso % (Auto) 0.1 % (0.2-1.0) L 06/06/18 05:51 Neut # (Auto) 4.6 x10^3/uL (2.2-4.8) 06/06/18 05:51 Lymph # (Auto) 0.7 X10^3/uL (1.3-2.9) L 06/06/18 05:51 [place] # (Auto) 0.3 x10^3/uL (0.3-0.8) 06/06/18 05:51 Eos # (Auto) 0.0 x10^3/uL (0.0-0.2) 06/06/18 05:51 Baso # (Auto) 0.0 X10^3/uL (0.0-0.1) 06/06/18 05:51 Absolute Nucleated RBC 0.0 /100WBC 06/06/18 05:51 INR Target Range - 06/04/18 14:11 INR 0.95 (0.8-1.3) 06/04/18 14:11 APTT 25.5 SECONDS (22.9-36.5) 06/04/18 14:11 PTT Comment - 06/04/18 14:11 D-Dimer 961 ng/mL (0-400) H* 06/04/18 14:11 Sodium 141 mmol/L (136-145) 06/06/18 05:51 Corrected Sodium 142 mmol/L (136-145) 06/06/18 05:51 Potassium 4.3 mmol/L (3.5-5.1) 06/06/18 05:51 Chloride 107 mmol/L (98-107) 06/06/18 05:51 Carbon Dioxide 26.2 mmol/L (21-32) 06/06/18 05:51 BUN 10 mg/dL (7-18) 06/06/18 05:51 Creatinine 0.70 mg/dL (0.55-1.02) 06/06/18 05:51 Est GFR (MDRD) Af Amer > 60 (>60) 06/06/18 05:51 Est GFR (MDRD) Non-Af > 60 (>60) 06/06/18 05:51 Glucose 126 mg/dL (65-99) H 06/06/18 05:51 Calcium 8.5 mg/dL (8.5-10.1) 06/06/18 05:51 Corrected Calcium 9.5 mg/dL (8.5-10.1) 06/06/18 05:51 Magnesium 2.2 mg/dL (1.7-2.9) 06/05/18 05:40 Total Bilirubin 0.20 mg/dL (0.2-1.0) 06/06/18 05:51 AST 13 Units/L (15-37) L 06/06/18 05:51 ALT 13 Units/L (12-78) 06/06/18 05:51 Alkaline Phosphatase 58 Units/L (46-116) 06/06/18 05:51 Creatine Kinase 34 Units/L (26-192) 06/04/18 14:11 CK-MB (CK-2) < 1.0 ng/mL (0-4.0) 06/04/18 14:11 CK/CKMB % Calc 2.9 % (<4) 06/04/18 14:11 Troponin I < 0.02 ng/mL (0-1.5) 06/04/18 14:11 Total Protein 6.4 g/dL (6.4-8.2) 06/06/18 05:51 Albumin 2.8 g/dL (3.4-5.0) L 06/06/18 05:51 Globulin 3.6 g/dL (2.5-4.5) 06/06/18 05:51 Albumin/Globulin Ratio 0.8 Ratio (1.1-2.1) L 06/06/18 05:51 Triglycerides 119 mg/dL (0-150) 06/04/18 13:47 Cholesterol 193 mg/dL (0-200) 06/04/18 13:47 LDL Cholesterol, Calc 106 mg/dL (0-100) H 06/04/18 13:47 HDL Cholesterol 63 mg/dL (40-60) H 06/04/18 13:47 Cholesterol/HDL Ratio 3.1 (0.0-5.0) 06/04/18 13:47 Free T4 1.63 ng/dL (0.76-1.46) H 06/04/18 14:11 TSH 3rd Generation 1.729 uIU/mL (0.358-3.74) 06/04/18 14:11 H. pylori IgG Antibody Negative (NEGATIVE) 06/04/18 14:11 - Plan (1) CAD (coronary artery disease) Status: Chronic Plan: monitor BP, Telemetry (2) Hypertension Status: Chronic Qualifiers: Hypertension type: essential hypertension Qualified Code(s): I10 - Essential (primary) hypertension Plan: Monitor BP (3) Syncopal episodes Status: Acute Plan: Telemetry (4) Hypokalemia Status: Acute Plan: monitor labs, supplemental kcl (5) Ventricular trigeminy Status: Acute Plan: telemetry
[2018-06-07] MEDS: DUONEB 0.5 MG/3 MG NEB SCH ×3 (00:07→08:54)
[2018-06-07] MEDS: SOLU-Medrol 40 MG VIAL IVP SCH ×2 (01:50→09:24)
[2018-06-07] MEDS: SYNTHROID 88 mcg TAB PO SCH (05:52)
[2018-06-07 06:21] LABS: BASOPHILS % (AUTO) 0 % (0.2-1.0); HEMATOCRIT 40.3 % (36.0-47.0); LYMPHOCYTES # (AUTO) 0.8 X10^3/uL (1.3-2.9); LYMPHOCYTES % (AUTO) 13.3 % (21.0-51.0); MEAN CORPUSCULAR HEMOGLOBIN 31.6 pg (27.0-34.0); MEAN CORPUSCULAR HGB CONC 34.7 g/dL (33.0-35.0); MEAN CORPUSCULAR VOLUME 91.2 fL (80.0-100.0); MEAN PLATELET VOLUME 8.7 fL (7.4-11.0); MONOCYTES # (AUTO) 0.1 x10^3/uL (0.3-0.8); MONOCYTES % (AUTO) 2.1 % (0.0-13.0); NEUTROPHILS # (AUTO) 5.1 x10^3/uL (2.2-4.8); NEUTROPHILS % (AUTO) 84.6 % (42.0-75.0); PLATELET COUNT 248 X10^3/uL (150.0-450.0); RED BLOOD COUNT 4.42 X10^6/uL (3.5-5.4); RED CELL DISTRIBUTION WIDTH 12.9 % (11.6-16.5)
[2018-06-07 06:27] LABS: ALANINE AMINOTRANSFERASE 22 Units/L (12-78); ALBUMIN 2.9 g/dL (3.4-5.0); ALKALINE PHOSPHATASE 70 Units/L (46-116); ASPARTATE AMINO TRANSFERASE 17 Units/L (15-37); BLOOD UREA NITROGEN 11 mg/dL (7-18); CALCIUM 8.6 mg/dL (8.5-10.1); CARBON DIOXIDE 31.8 mmol/L (21-32); CHLORIDE 106 mmol/L (98-107); COR CA(FOR HYPOALB) 9.5 mg/dL (8.5-10.1); COR NA(FOR HYPERGLY) 142 mmol/L (136-145); CREATININE 0.75 mg/dL (0.55-1.02); SODIUM 141 mmol/L (136-145); TOTAL PROTEIN 6.5 g/dL (6.4-8.2); eGFR NON BLACK RACES > 60 (>60)
[2018-06-07] MEDS: ASPIRIN PO SCH (09:19)
[2018-06-07] MEDS: PROTONIX INJ 40 MG VIAL IVP SCH (09:19)
[2018-06-07] MEDS: CELEXA PO SCH (09:19)
[2018-06-07 12:34] VITALS: BP 144/64
[2018-06-07] MEDS ORDERED: XOPENEX 1.25 MG/3 ML NEBULE NEB SCH (13:00)
[2018-06-07] MEDS: ATIVAN TAB 1 MG PO PRN (13:04)
--- NOTE | 2018-06-18 22:27 | PCM.DCPLAN ---
Discharge Summary - Admission Date Date of Admission: 06/04/18 - Discharge Date Discharge Date: 06/07/18 - Admission Diagnoses (1) CAD (coronary artery disease) Status: Chronic (2) Hypertension Status: Chronic (3) Syncopal episodes Status: Acute (4) Hypokalemia Status: Acute (5) Ventricular trigeminy Status: Acute - Discharge Diagnoses Discharge Diagnosis: same as admission diagnosis - Discharge Medications Discharge Medications: Home Medication List levothyroxine [Synthroid] 1 tab PO DAILY 06/04/18 [History] Prescriptions: - Hospital Course Vital Signs: Temperature 98.3 F Pulse Rate [Radial] 75 Pulse Rate [Standing] 83 Pulse Rate [Sitting] 83 Pulse Rate [Lying] 79 Pulse Rate 72 Respiratory Rate 20 Blood Pressure [Right Arm] 170/72 Blood Pressure [Left Arm] 144/64 Blood Pressure [Standing] 114/61 Blood Pressure [Sitting] 107/59 Blood Pressure [Lying] 118/58 Blood Pressure 126/59 O2 Sat by Pulse Oximetry 94 Latest Lab Results: Laboratory Last Values WBC 6.0 X10^3/uL (3.6-10.0) 06/07/18 05:41 RBC 4.42 X10^6/uL (3.5-5.4) 06/07/18 05:41 Hgb 14.0 g/dL (12.0-16.0) 06/07/18 05:41 Hct 40.3 % (36.0-47.0) 06/07/18 05:41 MCV 91.2 fL (80.0-100.0) 06/07/18 05:41 MCH 31.6 pg (27.0-34.0) 06/07/18 05:41 MCHC 34.7 g/dL (33.0-35.0) 06/07/18 05:41 RDW 12.9 % (11.6-16.5) 06/07/18 05:41 Plt Count 248 X10^3/uL (150.0-450.0) 06/07/18 05:41 MPV 8.7 fL (7.4-11.0) 06/07/18 05:41 Neut % (Auto) 84.6 % (42.0-75.0) H 06/07/18 05:41 Lymph % (Auto) 13.3 % (21.0-51.0) L 06/07/18 05:41 [place] % (Auto) 2.1 % (0.0-13.0) 06/07/18 05:41 Eos % (Auto) 0.0 % (0.9-2.9) L 06/07/18 05:41 Baso % (Auto) 0 % (0.2-1.0) L 06/07/18 05:41 Neut # (Auto) 5.1 x10^3/uL (2.2-4.8) H 06/07/18 05:41 Lymph # (Auto) 0.8 X10^3/uL (1.3-2.9) L 06/07/18 05:41 [place] # (Auto) 0.1 x10^3/uL (0.3-0.8) L 06/07/18 05:41 Eos # (Auto) 0.0 x10^3/uL (0.0-0.2) 06/07/18 05:41 Baso # (Auto) 0.0 X10^3/uL (0.0-0.1) 06/07/18 05:41 Absolute Nucleated RBC 0.0 /100WBC 06/07/18 05:41 INR Target Range - 06/04/18 14:11 INR 0.95 (0.8-1.3) 06/04/18 14:11 APTT 25.5 SECONDS (22.9-36.5) 06/04/18 14:11 PTT Comment - 06/04/18 14:11 D-Dimer 961 ng/mL (0-400) H* 06/04/18 14:11 Sodium 141 mmol/L (136-145) 06/07/18 05:41 Corrected Sodium 142 mmol/L (136-145) 06/07/18 05:41 Potassium 4.1 mmol/L (3.5-5.1) 06/07/18 05:41 Chloride 106 mmol/L (98-107) 06/07/18 05:41 Carbon Dioxide 31.8 mmol/L (21-32) 06/07/18 05:41 BUN 11 mg/dL (7-18) 06/07/18 05:41 Creatinine 0.75 mg/dL (0.55-1.02) 06/07/18 05:41 Est GFR (MDRD) Af Amer > 60 (>60) 06/07/18 05:41 Est GFR (MDRD) Non-Af > 60 (>60) 06/07/18 05:41 Glucose 128 mg/dL (65-99) H 06/07/18 05:41 Calcium 8.6 mg/dL (8.5-10.1) 06/07/18 05:41 Corrected Calcium 9.5 mg/dL (8.5-10.1) 06/07/18 05:41 Magnesium 2.2 mg/dL (1.7-2.9) 06/05/18 05:40 Total Bilirubin 0.20 mg/dL (0.2-1.0) 06/07/18 05:41 AST 17 Units/L (15-37) 06/07/18 05:41 ALT 22 Units/L (12-78) 06/07/18 05:41 Alkaline Phosphatase 70 Units/L (46-116) 06/07/18 05:41 Creatine Kinase 34 Units/L (26-192) 06/04/18 14:11 CK-MB (CK-2) < 1.0 ng/mL (0-4.0) 06/04/18 14:11 CK/CKMB % Calc 2.9 % (<4) 06/04/18 14:11 Troponin I < 0.02 ng/mL (0-1.5) 06/04/18 14:11 Total Protein 6.5 g/dL (6.4-8.2) 06/07/18 05:41 Albumin 2.9 g/dL (3.4-5.0) L 06/07/18 05:41 Globulin 3.6 g/dL (2.5-4.5) 06/07/18 05:41 Albumin/Globulin Ratio 0.8 Ratio (1.1-2.1) L 06/07/18 05:41 Triglycerides 119 mg/dL (0-150) 06/04/18 13:47 Cholesterol 193 mg/dL (0-200) 06/04/18 13:47 LDL Cholesterol, Calc 106 mg/dL (0-100) H 06/04/18 13:47 HDL Cholesterol 63 mg/dL (40-60) H 06/04/18 13:47 Cholesterol/HDL Ratio 3.1 (0.0-5.0) 06/04/18 13:47 Free T4 1.63 ng/dL (0.76-1.46) H 06/04/18 14:11 TSH 3rd Generation 1.729 uIU/mL (0.358-3.74) 06/04/18 14:11 H. pylori IgG Antibody Negative (NEGATIVE) 06/04/18 14:11 Hospital Course: Patient states she passed out last night while on the sofa witnessed by her grand daughter. States she had upper epigastric pain, nausea and SOB when episode occurred. States she tried eating piece of bread and thats when she passed out. States that her heart did feel like it raced. Patient states she has been feeling weak and dizzy. States she had similar episode in November. Is followed by Dr Núñez, Cardiology in [place]. Has history of CABG 1997. States she has yearly stress test. Next visit is in October. Patient was stable. Patient was discharged home to be followed in OP setting for Holter monitor and Dr Núñez. - Discharge Plan Disposition: 01 HOME, SELF-CARE Condition: Stable - Follow ups/Referrals Follow ups/Referrals: MATTHEW ORTIZ [Primary Care Provider] - 3 days - Instructions Instructions: Chronic Obstructive Pulmonary Disease Exacerbation, [id number] , Steps to Quit Smoking, [id number], Dehydration, Adult, [id number], Hypertension, Xilg-ep-[id number], Syncope, Kdle-ce-Cbuf, Coronary Artery Disease, Female Forms: Patient Portal
== END 2018-06-07 15:05 | disposition home or self-care (01) ==
LOC: MED/SURG 12:33 → ER 12:33 → MED/SURG 20:00
PROVIDERS: ADMIT Internal Medicine; ATTEND Internal Medicine
DX: R94.31 Abnormal electrocardiogram [ECG] [EKG]; I95.1 Orthostatic hypotension; E86.0 Dehydration; E87.6 Hypokalemia; R55 Syncope and collapse; E78.2 Mixed hyperlipidemia; E03.8 Other specified hypothyroidism; Z79.899 Other long term (current) drug therapy; J44.9 Chronic obstructive pulmonary disease, unspecified; Z79.1 Long term (current) use of non-steroidal anti-inflammatories (NSAID); I10 Essential (primary) hypertension; R00.8 Other abnormalities of heart beat; I25.10 Atherosclerotic heart disease of native coronary artery without angina pectoris
CPT/HCPCS: 36415; 70450; 71010; 71045; 71275; 80048; 80053; 80061; 82550; 82553; 83735; 84439; 84443; 84484; 85025; 85378; 85610; 85730; 86677; 93005; 93010; 94640; 96365; 96367; 96374; 99218; 99284; A4216; A4222; C9113; Q0144; G0378; J2920; J2930; J3480; J7030; J7050; J7620; J8499

== ENCOUNTER 2018-12-02 07:45 | Inpatient (IN) ==
[2018-12-02] MEDS ORDERED: LR 1000 ML IV 1,000 ML IV ONE (07:54)
[2018-12-02] MEDS ORDERED: ANCEF VIAL 1 GRAM ONE (07:54)
[2018-12-02 09:18] VITALS: BMI 20.9
[2018-12-02] MEDS ORDERED: NS IRRIGATION 500 ML IR ONE (11:18)
[2018-12-02] MEDS ORDERED: XYLOCAINE 1 % (PLAIN) ONE (11:40)
[2018-12-02] MEDS ORDERED: FENTANYL INJ 250 mcg ONE (12:25)
[2018-12-02] MEDS ORDERED: ZOFRAN INJ 4 MG VIAL IVP PRN (14:02)
[2018-12-02] MEDS ORDERED: PHENERGAN INJ 25 MG IVP PRN (14:02)
[2018-12-02] MEDS ORDERED: BENADRYL INJ 50 MG VIAL IVP PRN (14:02)
[2018-12-02] MEDS ORDERED: REGLAN INJ 10 MG VIAL IVP PRN (14:02)
[2018-12-02] MEDS ORDERED: DILAUDID INJ IVP PRN ×2 (14:02→14:20)
[2018-12-02] MEDS ORDERED: DILAUDID INJ ONE (14:04)
[2018-12-02] MEDS ORDERED: EPHEDRINE SULFATE INJ ONE (15:21)
[2018-12-02] MEDS ORDERED: VERSED ONE (15:21)
[2018-12-02] MEDS ORDERED: QUELICIN (OR ANECTINE) ONE (15:21)
[2018-12-02] MEDS ORDERED: SUPRANE IN ONE (15:21)
[2018-12-02] MEDS ORDERED: DIPRIVAN VIAL ONE (15:21)
[2018-12-02] MEDS ORDERED: ZOFRAN INJ 4 MG VIAL ONE (15:21)
[2018-12-02] MEDS ORDERED: ROBINUL ONE (15:21)
[2018-12-02] MEDS ORDERED: XYLOCAINE 2 % (PLAIN) ONE (15:21)
[2018-12-02] MEDS ORDERED: NORCURON INJ 10 MG VIAL ONE (15:21)
[2018-12-02] MEDS ORDERED: NEOSTIGMINE INJ ONE (15:21)
[2018-12-02] MEDS ORDERED: PERCOCET TAB 5/325 MG ONE (17:40)
[2018-12-02] MEDS: PERCOCET TAB 5/325 MG PO PRN ×2 (17:41→22:12)
[2018-12-02] MEDS: CRESTOR TAB 10 MG PO SCH (22:13)
[2018-12-02] MEDS: ANCEF VIAL 1 GRAM IVP SCH (22:14)
[2018-12-02] MEDS: ATIVAN TAB 1 MG PO PRN (22:25)
[2018-12-03 05:32] LABS: BASOPHILS # (AUTO) 0.1 X10^3/uL (0.0-0.1); BASOPHILS % (AUTO) 1.1 % (0.2-1.0); EOSINOPHILS # (AUTO) 0.2 x10^3/uL (0.0-0.2); EOSINOPHILS % (AUTO) 2.6 % (0.9-2.9); HEMATOCRIT 41.5 % (36.0-47.0); HEMOGLOBIN 14.2 g/dL (12.0-16.0); LYMPHOCYTES # (AUTO) 2.4 X10^3/uL (1.3-2.9); MEAN CORPUSCULAR HEMOGLOBIN 31.1 pg (27.0-34.0); MEAN CORPUSCULAR HGB CONC 34.1 g/dL (33.0-35.0); MEAN CORPUSCULAR VOLUME 91.3 fL (80.0-100.0); MONOCYTES # (AUTO) 0.6 x10^3/uL (0.3-0.8); MONOCYTES % (AUTO) 8.8 % (0.0-13.0); NEUTROPHILS # (AUTO) 3.7 x10^3/uL (2.2-4.8); NEUTROPHILS % (AUTO) 53.5 % (42.0-75.0); PLATELET COUNT 256 X10^3/uL (150.0-450.0); RED BLOOD COUNT 4.55 X10^6/uL (3.5-5.4); RED CELL DISTRIBUTION WIDTH 14.1 % (11.6-16.5); WHITE BLOOD COUNT 6.9 X10^3/uL (3.6-10.0)
[2018-12-03 05:39] LABS: ALANINE AMINOTRANSFERASE 12 Units/L (12-78); ALBUMIN 3.2 g/dL (3.4-5.0); ALKALINE PHOSPHATASE 89 Units/L (46-116); ASPARTATE AMINO TRANSFERASE 15 Units/L (15-37); BLOOD UREA NITROGEN 9 mg/dL (7-18); CALCIUM 8.9 mg/dL (8.5-10.1); CARBON DIOXIDE 33.2 mmol/L (21-32); CHLORIDE 103 mmol/L (98-107); COR CA(FOR HYPOALB) 9.5 mg/dL (8.5-10.1); CREATININE 0.65 mg/dL (0.55-1.02); SODIUM 141 mmol/L (136-145); eGFR NON BLACK RACES > 60 (>60)
[2018-12-03] MEDS: SYNTHROID 75 mcg TAB PO SCH ×2 (06:01→22:02)
[2018-12-03] MEDS: ANCEF VIAL 1 GRAM IVP SCH ×2 (06:01→18:49)
[2018-12-03] MEDS: PERCOCET TAB 5/325 MG PO PRN ×2 (06:10→20:22)
--- NOTE | 2018-12-03 08:50 | DR.PROGNOT ---
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 doing well . only mild drainage . started on her home medications.. - History of Present Illness History of Present Illness: no changes. - Past Medical Family Social History Past Med/Fam/Surg Hx: No changes since H&P Allergies: Allergies Sulfa (Sulfonamide Antibiotics) [SULFA] Allergy (Verified 12/19/17 00:40) - Review Of Systems ROS: No change since H&P - Vital Signs Vital Signs: Temperature 97.5 F Pulse Rate [Left Brachial] 65 Pulse Rate 79 Respiratory Rate 18 Blood Pressure [Right Arm] 170/72 Blood Pressure [Left Arm] 115/62 Blood Pressure [Standing] 114/61 Blood Pressure [Sitting] 107/59 Blood Pressure [Lying] 118/58 Blood Pressure 120/58 O2 Sat by Pulse Oximetry 96 - Physical Exam Eyes: Normal Ear: Normal Nose: Normal Respiratory: Normal Cardiovascular: Normal : Normal GI:Auscultation: Normal GI:Palpation: Normal GI: Tenderness: Normal Skin: Other (dressing of mastectomy site intact , no bleeding ,no arm swelling and normal ROM .) Mood Description: Calm Speech Pattern: Clear, Appropriate - Laboratory and Diagnostics Result Diagrams: 12/03/18 05:05 12/03/18 05:05 Labs: Laboratory WBC 6.9 X10^3/uL (3.6-10.0) 12/03/18 05:05 RBC 4.55 X10^6/uL (3.5-5.4) 12/03/18 05:05 Hgb 14.2 g/dL (12.0-16.0) 12/03/18 05:05 Hct 41.5 % (36.0-47.0) 12/03/18 05:05 MCV 91.3 fL (80.0-100.0) 12/03/18 05:05 MCH 31.1 pg (27.0-34.0) 12/03/18 05:05 MCHC 34.1 g/dL (33.0-35.0) 12/03/18 05:05 RDW 14.1 % (11.6-16.5) 12/03/18 05:05 Plt Count 256 X10^3/uL (150.0-450.0) 12/03/18 05:05 MPV 9.0 fL (7.4-11.0) 12/03/18 05:05 Neut % (Auto) 53.5 % (42.0-75.0) 12/03/18 05:05 Lymph % (Auto) 34.0 % (21.0-51.0) 12/03/18 05:05 [place] % (Auto) 8.8 % (0.0-13.0) 12/03/18 05:05 Eos % (Auto) 2.6 % (0.9-2.9) 12/03/18 05:05 Baso % (Auto) 1.1 % (0.2-1.0) H 12/03/18 05:05 Neut # (Auto) 3.7 x10^3/uL (2.2-4.8) 12/03/18 05:05 Lymph # (Auto) 2.4 X10^3/uL (1.3-2.9) 12/03/18 05:05 [place] # (Auto) 0.6 x10^3/uL (0.3-0.8) 12/03/18 05:05 Eos # (Auto) 0.2 x10^3/uL (0.0-0.2) 12/03/18 05:05 Baso # (Auto) 0.1 X10^3/uL (0.0-0.1) 12/03/18 05:05 Absolute Nucleated RBC 0.0 /100WBC 12/03/18 05:05 Sodium 141 mmol/L (136-145) 12/03/18 05:05 Corrected Sodium TNP 12/03/18 05:05 Potassium 3.9 mmol/L (3.5-5.1) 12/03/18 05:05 Chloride 103 mmol/L (98-107) 12/03/18 05:05 Carbon Dioxide 33.2 mmol/L (21-32) H 12/03/18 05:05 BUN 9 mg/dL (7-18) 12/03/18 05:05 Creatinine 0.65 mg/dL (0.55-1.02) 12/03/18 05:05 Est GFR (MDRD) Af Amer > 60 (>60) 12/03/18 05:05 Est GFR (MDRD) Non-Af > 60 (>60) 12/03/18 05:05 Glucose 102 mg/dL (65-99) H 12/03/18 05:05 Calcium 8.9 mg/dL (8.5-10.1) 12/03/18 05:05 Corrected Calcium 9.5 mg/dL (8.5-10.1) 12/03/18 05:05 Total Bilirubin 0.30 mg/dL (0.2-1.0) 12/03/18 05:05 AST 15 Units/L (15-37) 12/03/18 05:05 ALT 12 Units/L (12-78) 12/03/18 05:05 Alkaline Phosphatase 89 Units/L (46-116) 12/03/18 05:05 Total Protein 6.0 g/dL (6.4-8.2) L 12/03/18 05:05 Albumin 3.2 g/dL (3.4-5.0) L 12/03/18 05:05 Globulin 2.8 g/dL (2.5-4.5) 12/03/18 05:05 Albumin/Globulin Ratio 1.1 Ratio (1.1-2.1) 12/03/18 05:05 Tissue Pathology To follow 12/02/18 12:35 - Assessment and Plan 1: post op Rt mastectomy for Rt breast ca . COPD .HTN . same post op care . medical eval. ambulation and pulmonary care . - Problem Patient Problems: Patient Problems S/P mastectomy (Acute) Z90.10
[2018-12-03] MEDS: CELEXA PO SCH (09:08)
[2018-12-03] MEDS: ASPIRIN EC 81 MG PO SCH (09:08)
[2018-12-03] MEDS: PROCARDIA XL PO SCH (09:08)
[2018-12-03] MEDS: MICRO K EXTEN CAP 10 MEQ PO SCH (09:08)
[2018-12-03] MEDS ORDERED: TUSSIONEX PENNKINETIC SUSP PO PRN (12:17)
[2018-12-03] MEDS: ATIVAN TAB 1 MG PO PRN (16:38)
[2018-12-03] MEDS ORDERED: XYLOCAINE 1 % (PLAIN) ONE (19:10)
[2018-12-03] MEDS: ANCEF VIAL 1 GRAM IM SCH ×2 (19:12→22:04)
[2018-12-03] MEDS: CRESTOR TAB 10 MG PO SCH (20:22)
[2018-12-03] MEDS: RESTORIL CAP 15 MG PO PRN (20:23)
[2018-12-04 05:18] LABS: BASOPHILS % (AUTO) 0.8 % (0.2-1.0); EOSINOPHILS # (AUTO) 0.2 x10^3/uL (0.0-0.2); EOSINOPHILS % (AUTO) 3.9 % (0.9-2.9); HEMATOCRIT 39.8 % (36.0-47.0); HEMOGLOBIN 13.6 g/dL (12.0-16.0); LYMPHOCYTES # (AUTO) 2.6 X10^3/uL (1.3-2.9); LYMPHOCYTES % (AUTO) 42.9 % (21.0-51.0); MEAN CORPUSCULAR HEMOGLOBIN 31.3 pg (27.0-34.0); MEAN CORPUSCULAR HGB CONC 34.1 g/dL (33.0-35.0); MEAN CORPUSCULAR VOLUME 91.8 fL (80.0-100.0); MEAN PLATELET VOLUME 9.8 fL (7.4-11.0); MONOCYTES # (AUTO) 0.6 x10^3/uL (0.3-0.8); MONOCYTES % (AUTO) 9.1 % (0.0-13.0); NEUTROPHILS # (AUTO) 2.6 x10^3/uL (2.2-4.8); NEUTROPHILS % (AUTO) 43.3 % (42.0-75.0); PLATELET COUNT 246 X10^3/uL (150.0-450.0); RED BLOOD COUNT 4.34 X10^6/uL (3.5-5.4); RED CELL DISTRIBUTION WIDTH 14.1 % (11.6-16.5)
[2018-12-04 05:36] LABS: ALANINE AMINOTRANSFERASE 7 Units/L (12-78); ALBUMIN 2.8 g/dL (3.4-5.0); ALKALINE PHOSPHATASE 82 Units/L (46-116); ASPARTATE AMINO TRANSFERASE 13 Units/L (15-37); BLOOD UREA NITROGEN 11 mg/dL (7-18); CALCIUM 8.3 mg/dL (8.5-10.1); CARBON DIOXIDE 30.3 mmol/L (21-32); CHLORIDE 105 mmol/L (98-107); COR CA(FOR HYPOALB) 9.3 mg/dL (8.5-10.1); CREATININE 0.67 mg/dL (0.55-1.02); SODIUM 141 mmol/L (136-145); TOTAL PROTEIN 5.6 g/dL (6.4-8.2); eGFR NON BLACK RACES > 60 (>60)
[2018-12-04] MEDS: ASPIRIN EC 81 MG PO SCH (09:55)
[2018-12-04] MEDS: MICRO K EXTEN CAP 10 MEQ PO SCH (09:55)
[2018-12-04] MEDS: CELEXA PO SCH (09:55)
[2018-12-04] MEDS: PROCARDIA XL PO SCH (09:55)
[2018-12-04] MEDS: ATIVAN TAB 1 MG PO PRN ×2 (09:57→20:23)
--- NOTE | 2018-12-04 11:25 | DR.CONSULT ---
Consult - Consultation for Day of: Date: 12/03/18 - Chief Complaint Chief Complaint: Post op Rt mastectomy and sentinel node Bx with lower axillary disection performed per Dr. Stout on Wednesday. Currently doing well with controlled pain and mild drainage reported on dressing changes. pt has PMH of copd, oa htn, cad ivania and we have resumed her home medication. will follow post operative plan of care. - Past Medical History Past Medical History: Coronary Artery Disease, Dyslipidemia, Depression, Anxiety, Hypothyroidism, COPD - Past Surgical History Surgical History: Cholecystectomy, Hysterectomy, Other - Family History Family Medical History: Hypertension - Social History Does patient currently use any type of tobacco product: Yes Have you used tobacco products in the last 12 months: Yes Type of Tobacco Use: Cigarettes How many years tobacco product used: 59 Does any household member use tobacco: Yes Alcohol Use: None Drug Use: None - Medications Home Medications: Sulfa (Sulfonamide Antibiotics) [SULFA] Allergy (Verified 12/19/17 00:40) CONTINUE taking the following medications aspirin [Aspir-81] 81 mg PO DAILY 12/02/18 [History] levofloxacin 500 mg PO DAILY 12/02/18 [History] potassium chloride 10 meq PO DAILY 12/02/18 [History] rosuvastatin [Crestor] 10 mg PO HS 12/02/18 [History] - Review of Systems Constitutional: No Symptoms Reported Eyes: No Symptoms Reported ENT: No Symptoms Reported Respiratory: No Symptoms Reported Cardiovascular: No Symptoms Reported Gastrointestinal: No Symptoms Reported Genitourinary: No Symptoms Reported Musculoskeletal: No Symptoms Reported Skin: Wound Neurological: No Symptoms Reported - Physical Exam Vital Signs: Temperature 97.8 F Pulse Rate [Left Brachial] 66 Pulse Rate 79 Respiratory Rate 20 Blood Pressure [Right Arm] 170/72 Blood Pressure [Left Arm] 129/65 Blood Pressure [Standing] 114/61 Blood Pressure [Sitting] 107/59 Blood Pressure [Lying] 118/58 Blood Pressure 120/58 O2 Sat by Pulse Oximetry 95 Oriented: Normal Eyes: Normal Ear: Normal Nose: Normal Throat: Normal Respiratory: RLL Diminished, LLL Diminished Cardiovascular: Normal : Normal Auscultation: Bowel Sounds: Normal Palpation: Normal Tenderness: Normal Skin: Wound (right breast) Musculoskeletal: Right, Shoulder, Back:Lumbar, Tender Psychiatric: Anxiety Affect: Anxious Speech Pattern: Clear, Appropriate - Plan Plan: PLAN TO CONTINUE POST OPERATIVE PLAN OF CARE WITH WOUND MANAGEMENT PER DR STOUT. HAVE RESUMED HOME MEDICATION FOR BP, LIPID CONTROL, AND MANAGEMENT OF COPD, IVANIA AND OA. - Allergies Allergies/Adverse Reactions: Allergies Allergy/AdvReac Type Severity Reaction Status Date / Time Sulfa (Sulfonamide Allergy Verified 12/19/17 00:40 Antibiotics) [SULFA]
--- NOTE | 2018-12-04 15:03 | NM ---
HISTORY: Right breast invasive ductal carcinoma Study: Nuclear medicine sentinel lymph node injection Comparison: None Technique: Nuclear medicine scintigraphy was performed following the administration of 200 uCi of sulfur colloid injected in 4 equal quadrants surrounding the nipple following prep and draping in the usual sterile fashion. Findings: A single image was submitted demonstrating radiotracer surrounding the nipple. The patient was sent to the operating suite in stable satisfactory condition. IMPRESSION: Technically successful right sentinel lymph node injection. Reported By:
--- NOTE | 2018-12-04 15:04 | RAD ---
Examination: Chest, PA view History: Cough COPD Comparison 11/25/2018 Findings: Continued normal heart size with sternal wires. Symmetric pulmonary hyperinflation. No acute infiltrate. Diffuse interstitial prominence in the lungs is probably chronic peribronchial thickening. Surgical skin clips are now noted in the soft tissues of the right chest wall. Impression: Postsurgical findings. Stable appearance of COPD. No acute pulmonary or pleural lesion identified. Reported By:
[2018-12-04] MEDS ORDERED: XYLOCAINE 1 % (PLAIN) ONE (15:42)
[2018-12-04] MEDS: ROCEPHIN VIAL 1 GRAM IM SCH (15:58)
[2018-12-04] MEDS: XYLOCAINE 1 % (PLAIN) IM ONE ×2 (15:59→17:27)
[2018-12-04] MEDS ORDERED: DUONEB 0.5 MG/3 MG NEB PRN (16:43)
[2018-12-04] MEDS: SYNTHROID 75 mcg TAB PO SCH (17:27)
[2018-12-04] MEDS: RESTORIL CAP 15 MG PO PRN (20:23)
[2018-12-04] MEDS: CRESTOR TAB 10 MG PO SCH (20:23)
[2018-12-05] MEDS: SYNTHROID 75 mcg TAB PO SCH (05:34)
[2018-12-05 05:53] LABS: BASOPHILS # (AUTO) 0.1 X10^3/uL (0.0-0.1); BASOPHILS % (AUTO) 1.2 % (0.2-1.0); EOSINOPHILS # (AUTO) 0.3 x10^3/uL (0.0-0.2); HEMOGLOBIN 13.2 g/dL (12.0-16.0); LYMPHOCYTES # (AUTO) 2.7 X10^3/uL (1.3-2.9); LYMPHOCYTES % (AUTO) 43.6 % (21.0-51.0); MEAN CORPUSCULAR HEMOGLOBIN 31.3 pg (27.0-34.0); MEAN CORPUSCULAR HGB CONC 33.9 g/dL (33.0-35.0); MEAN CORPUSCULAR VOLUME 92.3 fL (80.0-100.0); MEAN PLATELET VOLUME 8.7 fL (7.4-11.0); MONOCYTES # (AUTO) 0.6 x10^3/uL (0.3-0.8); NEUTROPHILS # (AUTO) 2.6 x10^3/uL (2.2-4.8); NEUTROPHILS % (AUTO) 42.2 % (42.0-75.0); PLATELET COUNT 233 X10^3/uL (150.0-450.0); RED BLOOD COUNT 4.23 X10^6/uL (3.5-5.4); WHITE BLOOD COUNT 6.3 X10^3/uL (3.6-10.0)
[2018-12-05 06:13] LABS: ALANINE AMINOTRANSFERASE 6 Units/L (12-78); ALBUMIN 2.7 g/dL (3.4-5.0); ALKALINE PHOSPHATASE 86 Units/L (46-116); ASPARTATE AMINO TRANSFERASE 13 Units/L (15-37); BLOOD UREA NITROGEN 12 mg/dL (7-18); CALCIUM 8.2 mg/dL (8.5-10.1); CARBON DIOXIDE 30.4 mmol/L (21-32); CHLORIDE 106 mmol/L (98-107); COR CA(FOR HYPOALB) 9.2 mg/dL (8.5-10.1); CREATININE 0.55 mg/dL (0.55-1.02); SODIUM 142 mmol/L (136-145); TOTAL PROTEIN 5.5 g/dL (6.4-8.2); eGFR NON BLACK RACES > 60 (>60)
[2018-12-05] MEDS: ASPIRIN EC 81 MG PO SCH (08:45)
[2018-12-05] MEDS: MICRO K EXTEN CAP 10 MEQ PO SCH (08:45)
[2018-12-05] MEDS: PROCARDIA XL PO SCH (08:45)
[2018-12-05] MEDS: CELEXA PO SCH (08:47)
[2018-12-05] MEDS: ROCEPHIN VIAL 1 GRAM IM SCH (08:47)
[2018-12-05] MEDS: ATIVAN TAB 1 MG PO PRN (10:19)
[2018-12-05 11:20] VITALS: BP 143/68
== END 2018-12-05 13:33 | disposition home or self-care (01) | DRG 581 ==
LOC: MED/SURG 08:11 → EDSTATUS 08:30
PROVIDERS: ADMIT Surgery; ATTEND Surgery
PROC: [UNRECOGNIZED PROCEDURE] (2018-12-02 10:25)
DX: C50.111 Malignant neoplasm of central portion of right female breast; I25.10 Atherosclerotic heart disease of native coronary artery without angina pectoris; F41.8 Other specified anxiety disorders; F32.89 Other specified depressive episodes; J44.9 Chronic obstructive pulmonary disease, unspecified; C50.011 Malignant neoplasm of nipple and areola, right female breast; E78.2 Mixed hyperlipidemia; I10 Essential (primary) hypertension; E03.8 Other specified hypothyroidism
CPT/HCPCS: 36415; 71010; 71045; 78195; 80053; 85025; 88307; 94760; 94762; 96375; A4216; A4222; J0330; J0690; J0696; J1170; J2250; J2405; J2704; J2710; J3010; J3490; J7120

== ENCOUNTER 2020-04-08 15:03 | Observation (INO) ==
[2020-04-08] MEDS ORDERED: DUONEB 0.5 MG/3 MG (3 mL) NEB PRN (15:19)
[2020-04-08] MEDS ORDERED: ZOFRAN INJ 4 MG VIAL IVP PRN (15:21)
[2020-04-08] MEDS ORDERED: LEVSIN/MAALOX/LIDOC VISC PO PRN (15:22)
[2020-04-08] MEDS ORDERED: ATIVAN TAB 1 MG PO PRN (15:29)
[2020-04-08] MEDS ORDERED: NS 1000 ML 1,000 ML ONE (16:10)
[2020-04-08] MEDS ORDERED: PROTONIX INJ 40 MG VIAL ONE (16:11)
[2020-04-08] MEDS: NS 1000 ML 1,000 ML IV SCH (16:54)
[2020-04-08] MEDS: PROTONIX INJ 40 MG VIAL IVP SCH (16:55)
[2020-04-08] MEDS: ZITHROMAX INJ 500 MG VIAL 500 MG in NS 250 ML IV 250 ML IV SCH (17:12)
[2020-04-08 17:14] LABS: BASOPHILS # (AUTO) 0.1 X10^3/uL (0.0-0.1); BASOPHILS % (AUTO) 1.2 % (0.2-1.0); EOSINOPHILS % (AUTO) 0.4 % (0.9-2.9); HEMATOCRIT 45.3 % (36.0-47.0); HEMOGLOBIN 15.6 g/dL (12.0-16.0); LYMPHOCYTES # (AUTO) 1.9 X10^3/uL (1.3-2.9); LYMPHOCYTES % (AUTO) 28.7 % (21.0-51.0); MEAN CORPUSCULAR HEMOGLOBIN 32.3 pg (27.0-34.0); MEAN CORPUSCULAR HGB CONC 34.5 g/dL (33.0-35.0); MEAN CORPUSCULAR VOLUME 93.6 fL (80.0-100.0); MEAN PLATELET VOLUME 7.8 fL (7.4-11.0); MONOCYTES # (AUTO) 0.5 x10^3/uL (0.3-0.8); MONOCYTES % (AUTO) 7.5 % (0.0-13.0); NEUTROPHILS # (AUTO) 4.2 x10^3/uL (2.2-4.8); NEUTROPHILS % (AUTO) 62.2 % (42.0-75.0); PLATELET COUNT 328 X10^3/uL (150.0-450.0); RED BLOOD COUNT 4.84 X10^6/uL (3.5-5.4); RED CELL DISTRIBUTION WIDTH 13.7 % (11.6-16.5); WHITE BLOOD COUNT 6.7 X10^3/uL (3.6-10.0)
[2020-04-08 17:42] LABS: ALANINE AMINOTRANSFERASE 19 Units/L (12-78); ALBUMIN 3.9 g/dL (3.4-5.0); ALKALINE PHOSPHATASE 70 Units/L (46-116); ASPARTATE AMINO TRANSFERASE 21 Units/L (15-37); BLOOD UREA NITROGEN 12 mg/dL (7-18); CALCIUM 9.3 mg/dL (8.5-10.1); CARBON DIOXIDE 34.2 mmol/L (21-32); CHLORIDE 100 mmol/L (98-107); CKMB % 3.7 % (<4); CREATINE KINASE 93 Units/L (26-192); CREATINE KINASE MB 3.4 ng/mL (0-4.0); CREATININE 0.77 mg/dL (0.55-1.02); MAGNESIUM 2.4 mg/dL (1.7-2.9); SODIUM 139 mmol/L (136-145); TOTAL PROTEIN 7.5 g/dL (6.4-8.2); TROPONIN I < 0.02 ng/mL (0-1.5); eGFR NON BLACK RACES > 60 (>60)
[2020-04-08 17:55] VITALS: BMI 17.9
[2020-04-08 17:59] LABS: RSV AG DETECTION NEGATIVE (NEGATIVE)
[2020-04-08 18:19] LABS: MYCOPLASMA PNEUMONIAE IGM AB NEGATIVE (NEGATIVE)
[2020-04-08 20:28] LABS: BILIRUBIN,URINE NEGATIVE (NEGATIVE); BLOOD/HEMOGLOBIN,URINE NEGATIVE (NEGATIVE); GLUCOSE, URINE NEGATIVE (NEGATIVE); KETONES,URINE NEGATIVE (NEGATIVE); LEUKOCYTE ESTERASE ,URINE NEGATIVE (NEGATIVE); NITRITES,URINE POSITIVE (NEGATIVE); PROTEIN,URINE NEGATIVE (NEGATIVE); UROBILINOGEN,URINE NORMAL (NORMAL)
[2020-04-08 20:34] LABS: APPEARANCE,URINE CLEAR (CLEAR); BACTERIA,URINE TRACE /HPF (NEGATIVE); COLOR,URINE YELLOW (YELLOW); RBC,URINE 0-2 /HPF (0-3); SQUAMOUS EPITHELIAL CELL,UR FEW /HPF (NEGATIVE)
--- NOTE | 2020-04-08 22:18 | RAD ---
Chest AP portableIndication: Chest pain and dyspneaFINDINGSThere is no pneumothorax or effusion. Lungs are hyperinflated. Heart size is normal. Monitor leads obscure detail.IMPRESSIONCOPD, with bronchitis, similar to the prior.Electronically signed by: PAOLA CHRISTINE (April 08, 2020 22:17:08)
[2020-04-08 22:44] LABS: CKMB % 3.7 % (<4); CREATINE KINASE 86 Units/L (26-192); CREATINE KINASE MB 3.2 ng/mL (0-4.0); TROPONIN I < 0.02 ng/mL (0-1.5)
[2020-04-09] MEDS ORDERED: RESTORIL CAP 15 MG PO PRN (00:47)
[2020-04-09] MEDS: NORCO 5/325 MG TAB PO PRN (01:13)
[2020-04-09 05:25] LABS: BASOPHILS # (AUTO) 0.1 X10^3/uL (0.0-0.1); BASOPHILS % (AUTO) 1.4 % (0.2-1.0); EOSINOPHILS # (AUTO) 0.2 x10^3/uL (0.0-0.2); EOSINOPHILS % (AUTO) 3.3 % (0.9-2.9); HEMATOCRIT 39.1 % (36.0-47.0); LYMPHOCYTES # (AUTO) 2.3 X10^3/uL (1.3-2.9); LYMPHOCYTES % (AUTO) 38.1 % (21.0-51.0); MEAN CORPUSCULAR HEMOGLOBIN 32.5 pg (27.0-34.0); MEAN CORPUSCULAR HGB CONC 34.4 g/dL (33.0-35.0); MEAN CORPUSCULAR VOLUME 94.3 fL (80.0-100.0); MEAN PLATELET VOLUME 8.5 fL (7.4-11.0); MONOCYTES # (AUTO) 0.6 x10^3/uL (0.3-0.8); MONOCYTES % (AUTO) 9.5 % (0.0-13.0); NEUTROPHILS # (AUTO) 2.8 x10^3/uL (2.2-4.8); NEUTROPHILS % (AUTO) 47.7 % (42.0-75.0); PLATELET COUNT 248 X10^3/uL (150.0-450.0); RED BLOOD COUNT 4.15 X10^6/uL (3.5-5.4); RED CELL DISTRIBUTION WIDTH 13.5 % (11.6-16.5); WHITE BLOOD COUNT 5.9 X10^3/uL (3.6-10.0)
[2020-04-09 05:40] LABS: HEMOGLOBIN 13.5 g/dL (12.0-16.0)
[2020-04-09] MEDS: NS 1000 ML 1,000 ML IV SCH ×3 (05:43→20:12)
[2020-04-09 05:50] LABS: ALANINE AMINOTRANSFERASE 14 Units/L (12-78); ALBUMIN 2.8 g/dL (3.4-5.0); ALKALINE PHOSPHATASE 59 Units/L (46-116); ASPARTATE AMINO TRANSFERASE 17 Units/L (15-37); BLOOD UREA NITROGEN 11 mg/dL (7-18); CALCIUM 8.1 mg/dL (8.5-10.1); CARBON DIOXIDE 30.4 mmol/L (21-32); CHLORIDE 104 mmol/L (98-107); CKMB % 3.8 % (<4); COR CA(FOR HYPOALB) 9.1 mg/dL (8.5-10.1); CREATINE KINASE 79 Units/L (26-192); CREATININE 0.56 mg/dL (0.55-1.02); SODIUM 140 mmol/L (136-145); TOTAL PROTEIN 5.7 g/dL (6.4-8.2); TROPONIN I < 0.02 ng/mL (0-1.5); eGFR NON BLACK RACES > 60 (>60)
[2020-04-09] MEDS ORDERED: K-RIDER 10 MEQ/NS 100 ML 10 MEQ/100 ML BAG IV PRN (06:17)
[2020-04-09] MEDS ORDERED: POTASSIUM CHL 60 MEQ/NS 0.45% 500 ML IV PRN (06:17)
[2020-04-09] MEDS ORDERED: POTASSIUM CHL 40 MEQ/NS 0.45% 500 ML IV PRN (06:17)
[2020-04-09] MEDS ORDERED: KLOR-CON PO PRN (06:17)
[2020-04-09] MEDS ORDERED: POTASSIUM CHLORIDE LIQ 20 MEQ UDC PO PRN (06:17)
[2020-04-09] MEDS ORDERED: MICRO K EXTEN CAP 10 MEQ PO PRN (06:17)
[2020-04-09] MEDS ORDERED: MAGNESIUM SULFATE 1 GRAM/100 mL PREMIX 1 GM/100 ML BAG IV PRN (06:17)
[2020-04-09] MEDS: PROTONIX INJ 40 MG VIAL IVP SCH (08:14)
[2020-04-09] MEDS: ZITHROMAX INJ 500 MG VIAL 500 MG in NS 250 ML IV 250 ML IV SCH (08:15)
[2020-04-09] MEDS: K-DUR TAB 20 MEQ PO PRN (08:15)
[2020-04-09] MEDS: LOVENOX INJ 40 MG SYR SC SCH (11:09)
[2020-04-09] MEDS: PROCARDIA XL PO SCH (14:02)
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
[2020-04-09] MEDS ORDERED: PERIACTIN TAB 4 MG PO ONE (15:54)
[2020-04-09] MEDS ORDERED: SOLU-Medrol 125 MG VIAL ONE (15:54)
[2020-04-09] MEDS: SOLU-Medrol 125 MG VIAL IVP SCH ×2 (16:00→21:15)
[2020-04-09] MEDS: PERIACTIN TAB 4 MG PO SCH (16:01)
[2020-04-09] MEDS ORDERED: ATIVAN TAB 1 MG PO SCH (21:00)
[2020-04-09] MEDS: ATIVAN TAB 1 MG PO PRN (22:46)
[2020-04-10] MEDS: NORCO 5/325 MG TAB PO PRN (00:10)
[2020-04-10] MEDS: SOLU-Medrol 125 MG VIAL IVP SCH (05:02)
[2020-04-10 05:12] LABS: BASOPHILS % (AUTO) 0.2 % (0.2-1.0); HEMATOCRIT 40.5 % (36.0-47.0); HEMOGLOBIN 13.8 g/dL (12.0-16.0); LYMPHOCYTES # (AUTO) 1.1 X10^3/uL (1.3-2.9); LYMPHOCYTES % (AUTO) 20.8 % (21.0-51.0); MEAN CORPUSCULAR HEMOGLOBIN 32.3 pg (27.0-34.0); MEAN CORPUSCULAR HGB CONC 34.2 g/dL (33.0-35.0); MEAN CORPUSCULAR VOLUME 94.6 fL (80.0-100.0); MEAN PLATELET VOLUME 8.6 fL (7.4-11.0); MONOCYTES # (AUTO) 0 x10^3/uL (0.3-0.8); MONOCYTES % (AUTO) 0.8 % (0.0-13.0); NEUTROPHILS % (AUTO) 78.2 % (42.0-75.0); PLATELET COUNT 263 X10^3/uL (150.0-450.0); RED BLOOD COUNT 4.28 X10^6/uL (3.5-5.4); RED CELL DISTRIBUTION WIDTH 13.3 % (11.6-16.5); WHITE BLOOD COUNT 5.1 X10^3/uL (3.6-10.0)
[2020-04-10 05:16] LABS: ALANINE AMINOTRANSFERASE 17 Units/L (12-78); ALKALINE PHOSPHATASE 57 Units/L (46-116); ASPARTATE AMINO TRANSFERASE 16 Units/L (15-37); BLOOD UREA NITROGEN 18 mg/dL (7-18); CALCIUM 8.6 mg/dL (8.5-10.1); CHLORIDE 103 mmol/L (98-107); COR CA(FOR HYPOALB) 9.4 mg/dL (8.5-10.1); COR NA(FOR HYPERGLY) 139 mmol/L (136-145); CREATININE 0.79 mg/dL (0.55-1.02); SODIUM 138 mmol/L (136-145); TOTAL PROTEIN 6.1 g/dL (6.4-8.2); eGFR NON BLACK RACES > 60 (>60)
[2020-04-10] MEDS: PERIACTIN TAB 4 MG PO SCH ×3 (05:43→17:45)
[2020-04-10] MEDS: LOVENOX INJ 40 MG SYR SC SCH (08:42)
[2020-04-10] MEDS: PROCARDIA XL PO SCH (08:43)
[2020-04-10] MEDS: ATIVAN TAB 1 MG PO PRN (08:44)
[2020-04-10] MEDS: PROTONIX INJ 40 MG VIAL IVP SCH (08:45)
[2020-04-10] MEDS: ZITHROMAX INJ 500 MG VIAL 500 MG in NS 250 ML IV 250 ML IV SCH (08:45)
[2020-04-10] MEDS: NS 1000 ML 1,000 ML IV SCH ×2 (10:03→21:05)
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
[2020-04-10] MEDS: ROCEPHIN VIAL 1 GRAM 1 G in NS 100 ML IV + SPIKE MINIBAG* 100 ML IV SCH (11:39)
--- NOTE | 2020-04-10 11:45 | PCM.PROG ---
Progress Note - Progress Note for Day of Date of Exam: 04/10/20 - Subjective Subjective: PT IS 74 WF DIRECT ADMIT FROM DR HAYES OFFICE WITH CO CHEST PAIN AND COPD WITH ACUTE BRONCHITIS. PT IS CURRENTLY IN ISOLATION UNIT WITH PENDING COVID 19. PT HAS BEEN AFEBRILE SINCE ADMISSION. PT IS ON ZITHROMAX FOR BRONCHITIS AND RESP THERAPY. PLAN TO REPEAT CXR TODAY. WE DECREASED HER CCB TO 30MG DAILY WITH HEART RATE IN 70'S THIS AM, DENIES ANY CP AND BP STABLE. PT CE STABLE, RESULTS OF LABS AND CXR REVIEWED WITH PT AND HER DAUGHTER, ADDI. UC WITH GRAM NEG RODS, IV ROCEPHIN 1GM FOR UTI. POTASSIUM NORMAL THIS AM. IMPROVING LUNG WHEEZING AFTER STARTING STEROIDS. PT REPORTS SHE ATE GOOD BREAKFAST THIS AM WITHOUT NAUSEA. POSSIBLE D/C HOME TOMORROW WITH CONTINUED IMPROVMENT. - Past Medical Family Social History Past Med/Fam/Surg Hx: No changes since H&P Allergies: Allergies Sulfa (Sulfonamide Antibiotics) [SULFA] Allergy (Verified 12/19/17 00:40) - Review of Systems ROS: No change since H&P - Vital Signs and I&O's Vital Signs: Temperature 97.8 F Pulse Rate 81 Respiratory Rate 20 Blood Pressure [Right Arm] 143/68 Blood Pressure [Left Arm] 100/51 Blood Pressure [Standing] 114/61 Blood Pressure [Sitting] 107/59 Blood Pressure [Lying] 118/58 Blood Pressure 103/50 O2 Sat by Pulse Oximetry 100 Intake and Output: Intake & Output 04/07/20 04/08/20 04/09/20 04/10/20 11:59 11:59 11:59 11:59 Intake Total 1252 / 1252 2940 / 2940 Balance 1252 / 1252 2940 / 2940 - Physical Exam Oriented: Normal Eyes: Normal Ear: Normal Nose: Normal Throat: Normal Respiratory: Diminished, Wheezes, Rhonchi Cardiovascular: Normal : Normal Auscultation: Bowel Sounds: Normal Tenderness: Normal Skin: Decreased Turgur Musculoskeletal: Back:Thoracic, Back:Lumbar Psychiatric: Anxiety Mood Description: Anxious Affect: Anxious Speech Pattern: Clear, Appropriate - Laboratory and Diagnostics Result Diagrams: 04/10/20 04:33 04/10/20 04:33 Labs: 04/08/20 19:44 Urine,Clean Catch Urine Culture - Preliminary 04/09/20 12:57 Sputum - Expectorated Sputum Sputum Culture - Preliminary 04/09/20 12:57 Sputum - Expectorated Sputum - Final Laboratory WBC 5.1 X10^3/uL (3.6-10.0) 04/10/20 04:33 RBC 4.28 X10^6/uL (3.5-5.4) 04/10/20 04:33 Hgb 13.8 g/dL (12.0-16.0) 04/10/20 04:33 Hct 40.5 % (36.0-47.0) 04/10/20 04:33 MCV 94.6 fL (80.0-100.0) 04/10/20 04:33 MCH 32.3 pg (27.0-34.0) 04/10/20 04:33 MCHC 34.2 g/dL (33.0-35.0) 04/10/20 04:33 RDW 13.3 % (11.6-16.5) 04/10/20 04:33 Plt Count 263 X10^3/uL (150.0-450.0) 04/10/20 04:33 MPV 8.6 fL (7.4-11.0) 04/10/20 04:33 Neut % (Auto) 78.2 % (42.0-75.0) H 04/10/20 04:33 Lymph % (Auto) 20.8 % (21.0-51.0) L 04/10/20 04:33 [place] % (Auto) 0.8 % (0.0-13.0) 04/10/20 04:33 Eos % (Auto) 0.0 % (0.9-2.9) L 04/10/20 04:33 Baso % (Auto) 0.2 % (0.2-1.0) 04/10/20 04:33 Neut # (Auto) 4.0 x10^3/uL (2.2-4.8) 04/10/20 04:33 Lymph # (Auto) 1.1 X10^3/uL (1.3-2.9) L 04/10/20 04:33 [place] # (Auto) 0 x10^3/uL (0.3-0.8) L 04/10/20 04:33 Eos # (Auto) 0.0 x10^3/uL (0.0-0.2) 04/10/20 04:33 Baso # (Auto) 0.0 X10^3/uL (0.0-0.1) 04/10/20 04:33 Absolute Nucleated RBC 0.0 /100WBC 04/10/20 04:33 Sodium 138 mmol/L (136-145) 04/10/20 04:33 Corrected Sodium 139 mmol/L (136-145) 04/10/20 04:33 Potassium 4.8 mmol/L (3.5-5.1) 04/10/20 04:33 Chloride 103 mmol/L (98-107) 04/10/20 04:33 Carbon Dioxide 29.0 mmol/L (21-32) 04/10/20 04:33 BUN 18 mg/dL (7-18) 04/10/20 04:33 Creatinine 0.79 mg/dL (0.55-1.02) 04/10/20 04:33 Est GFR (MDRD) Af Amer > 60 (>60) 04/10/20 04:33 Est GFR (MDRD) Non-Af > 60 (>60) 04/10/20 04:33 Glucose 131 mg/dL (65-99) H 04/10/20 04:33 Calcium 8.6 mg/dL (8.5-10.1) 04/10/20 04:33 Corrected Calcium 9.4 mg/dL (8.5-10.1) 04/10/20 04:33 Magnesium 2.0 mg/dL (1.7-2.9) 04/09/20 04:24 Total Bilirubin 0.20 mg/dL (0.2-1.0) 04/10/20 04:33 AST 16 Units/L (15-37) 04/10/20 04:33 ALT 17 Units/L (12-78) 04/10/20 04:33 Alkaline Phosphatase 57 Units/L (46-116) 04/10/20 04:33 Creatine Kinase 79 Units/L (26-192) 04/09/20 04:24 CK-MB (CK-2) 3.0 ng/mL (0-4.0) 04/09/20 04:24 CK/CKMB % Calc 3.8 % (<4) 04/09/20 04:24 Troponin I < 0.02 ng/mL (0-1.5) 04/09/20 04:24 Total Protein 6.1 g/dL (6.4-8.2) L 04/10/20 04:33 Albumin 3.0 g/dL (3.4-5.0) L 04/10/20 04:33 Globulin 3.1 g/dL (2.5-4.5) 04/10/20 04:33 Albumin/Globulin Ratio 1.0 Ratio (1.1-2.1) L 04/10/20 04:33 Specimen Type Clean catch urine 04/08/20 19:44 Urine Color Yellow (YELLOW) 04/08/20 19:44 Urine Appearance Clear (CLEAR) 04/08/20 19:44 Urine pH 7.0 (5.0 - 8.0) 04/08/20 19:44 Ur Specific [place] 1.010 (1.000-1.030) 04/08/20 19:44 Urine Protein Negative (NEGATIVE) 04/08/20 19:44 Urine Glucose (UA) Negative (NEGATIVE) 04/08/20 19:44 Urine Ketones Negative (NEGATIVE) 04/08/20 19:44 Urine Occult Blood Negative (NEGATIVE) 04/08/20 19:44 Urine Nitrite Positive (NEGATIVE) 04/08/20 19:44 Urine Bilirubin Negative (NEGATIVE) 04/08/20 19:44 Urine Urobilinogen Normal (NORMAL) 04/08/20 19:44 Ur Leukocyte Esterase Negative (NEGATIVE) 04/08/20 19:44 Urine RBC 0-2 /HPF (0-3) 04/08/20 19:44 Urine WBC 0-2 /HPF (0-5) 04/08/20 19:44 Ur Squamous Epith Cells Few /HPF (NEGATIVE) 04/08/20 19:44 Urine Bacteria Trace /HPF (NEGATIVE) 04/08/20 19:44 Ur Culture Indicated? No/not indicated 04/08/20 19:44 RSV Nasal Swab Negative (NEGATIVE) 04/08/20 16:30 Influenza Type A Ag Negative-presumptive (NEGATIVE) 04/08/20 16:30 Influenza Type B Ag Negative-presumptive (NEGATIVE) 04/08/20 16:30 Mycoplasma pneumon IgG Negative (NEGATIVE) 04/08/20 16:45 S. pyogenes (TEM-PCR) Not detected (NOT DETECT) 04/08/20 16:30 - Plan (1) Chest pain Status: Acute Plan: ISOLATION, COVID 19 PENDING. AM LABS CBC CMP UA. SERIAL CE AND EKG ON ADMISSION, VERIFY HOME MEDICATION, GENTLE IV HYDRATION. RESP CONSULT, SUPPLEMENTAL O2, TELEMETRY. IV ATBX THERAPY, STRICT I&OS (2) Increasing shortness of breath Status: Acute (3) Anxiety Status: Chronic (4) CAD (coronary artery disease) Status: Chronic (5) COPD (chronic obstructive pulmonary disease) Status: Chronic Qualifiers: (6) Hypertension Status: Chronic Qualifiers: Hypertension type: essential hypertension Qualified Code(s): I10 - Essential (primary) hypertension
--- NOTE | 2020-04-10 13:05 | RAD ---
HISTORYSOB, CHEST PAINSTUDYCHEST, 1 VIEWCOMPARISONChest film April 08, 2020 and December 04, 2018.FINDINGSThe trachea is midline. The cardiac silhouette is unremarkable. There are sternotomy wires. Chronic diffuse interstitial lung pattern is seen unchanged from November 2018 consistent with chronic fibrosis. The lungs are clear without focal infiltrate or effusion. The bony thorax is unremarkable. The midshaft of the right humerus does appear expanded and lucent this on may be an old fracture deformity it is unchanged from April 08, 2020 but there are no older films for comparison.IMPRESSIONCOPD and chronic lung changes with sternotomy but no acute cardiopulmonary disease and no change from April 08, 2020.Again note is made that there appears to be expansion of cortex in the mid right humerus questionably lucent. Has this patient had fracture surgery are known bone lesion at this location?Electronically signed by: AROLDO RICARDO (April 10, 2020 13:03:42)
[2020-04-11 05:28] LABS: BASOPHILS # (AUTO) 0.1 X10^3/uL (0.0-0.1); BASOPHILS % (AUTO) 0.5 % (0.2-1.0); EOSINOPHILS # (AUTO) 0.1 x10^3/uL (0.0-0.2); EOSINOPHILS % (AUTO) 0.5 % (0.9-2.9); HEMATOCRIT 39.4 % (36.0-47.0); HEMOGLOBIN 13.4 g/dL (12.0-16.0); LYMPHOCYTES # (AUTO) 3.4 X10^3/uL (1.3-2.9); LYMPHOCYTES % (AUTO) 28.5 % (21.0-51.0); MEAN CORPUSCULAR HEMOGLOBIN 32.1 pg (27.0-34.0); MEAN CORPUSCULAR HGB CONC 34.1 g/dL (33.0-35.0); MEAN CORPUSCULAR VOLUME 94.2 fL (80.0-100.0); MEAN PLATELET VOLUME 8.8 fL (7.4-11.0); MONOCYTES # (AUTO) 0.8 x10^3/uL (0.3-0.8); NEUTROPHILS # (AUTO) 7.5 x10^3/uL (2.2-4.8); NEUTROPHILS % (AUTO) 63.5 % (42.0-75.0); PLATELET COUNT 255 X10^3/uL (150.0-450.0); RED BLOOD COUNT 4.18 X10^6/uL (3.5-5.4); RED CELL DISTRIBUTION WIDTH 13.6 % (11.6-16.5); WHITE BLOOD COUNT 11.8 X10^3/uL (3.6-10.0)
[2020-04-11 05:32] LABS: BLOOD UREA NITROGEN 24 mg/dL (7-18); CALCIUM 8.2 mg/dL (8.5-10.1); CARBON DIOXIDE 32.3 mmol/L (21-32); CHLORIDE 107 mmol/L (98-107); CREATININE 0.81 mg/dL (0.55-1.02); SODIUM 144 mmol/L (136-145); eGFR NON BLACK RACES > 60 (>60)
[2020-04-11] MEDS: NS 1000 ML 1,000 ML IV SCH ×2 (05:51→14:26)
[2020-04-11] MEDS: PERIACTIN TAB 4 MG PO SCH ×2 (06:38→12:22)
[2020-04-11] MEDS: LOVENOX INJ 40 MG SYR SC SCH (09:21)
[2020-04-11] MEDS: ROCEPHIN VIAL 1 GRAM 1 G in NS 100 ML IV + SPIKE MINIBAG* 100 ML IV SCH (09:21)
[2020-04-11] MEDS: ZITHROMAX INJ 500 MG VIAL 500 MG in NS 250 ML IV 250 ML IV SCH (09:22)
[2020-04-11] MEDS: PROTONIX INJ 40 MG VIAL IVP SCH (09:22)
[2020-04-11] MEDS: K-DUR TAB 20 MEQ PO PRN (09:23)
[2020-04-11] MEDS: ATIVAN TAB 1 MG PO PRN (09:31)
[2020-04-11] MEDS: PROCARDIA XL PO SCH (09:32)
[2020-04-11 14:26] VITALS: BP 108/54
== END 2020-04-11 14:40 | disposition home health service (06) ==
LOC: ICU
PROVIDERS: ADMIT Internal Medicine; ATTEND Internal Medicine
DX: B96.29 Other Escherichia coli [E. coli] as the cause of diseases classified elsewhere; E03.8 Other specified hypothyroidism; J44.1 Chronic obstructive pulmonary disease with (acute) exacerbation; R06.02 Shortness of breath; Z85.3 Personal history of malignant neoplasm of breast; F41.8 Other specified anxiety disorders; J20.8 Acute bronchitis due to other specified organisms; M19.90 Unspecified osteoarthritis, unspecified site; N39.0 Urinary tract infection, site not specified; I25.10 Atherosclerotic heart disease of native coronary artery without angina pectoris; Z11.59 Encounter for screening for other viral diseases; E78.2 Mixed hyperlipidemia; Z79.899 Other long term (current) drug therapy; R07.89 Other chest pain
CPT/HCPCS: 36415; 71010; 71045; 80048; 80053; 81001; 82550; 82553; 83735; 84484; 85025; 86738; 87040; 87070; 87086; 87088; 87186; 87205; 87400; 87420; 87651; 87804; 93005; 96360; 96361; 96372; 96374; 97116; 97162; 97530; A4222; C9113; G0378; J0456; J0696; J1650; J2930; J7030; J7050

== ENCOUNTER 2020-04-23 10:33 | Observation (INO) ==
--- NOTE | 2020-04-23 10:46 | DR.CP ---
HPI Time Seen Time Seen by Provider: 04/23/20 10:46 PCP Primary Care Physician: ANGEL HPI Comment HPI Comment: PATIENT IS 74YR OLD FEMALE IN ER WITH INTERMITTENT SUBSTERNAL PRESSURE SINCE LAST NIGHT. PATIENNT HAVE HISTORY OF CAD, S/P CABG DONE IN 1989. ALSO HISTORY DYSLIPIDEMIA. Complaint Chief Complaint Doctor Comments: INTERMITTENT SUBSTERNAL PRESSURE SINCE LAST NIGHT. Chief Complaint:: PT C/O CHEST PAIN PRESSURE TYPE PAIN AND BREAKING OUT INTO SWEATS. PT STATES HER PAIN STARTED LAST NIGHT. PT STATES HER PAIN IS COMING AND GOING AND POINTS TO SUBSTERNAL. PRESSURE TYPE PAIN. COVID-19 Coronavirus risk:travel/contact w/high risk person: No Has patient experienced Coronavirus symptoms: No Source History Provided: Patient Mode of Arrival Mode of Arrival: Ambulatory Timing Onset of Chief Complaint: 04/22/20 PMH PMH Past Medical History: Yes Past Medical History: Anxiety, COPD, Coronary Artery Disease, Depression, Dyslipidemia and Hypothyroidism Past Surgical History: Yes Surgical History: CABG/Valve Surgery, Cholecystectomy, Hysterectomy and Other Family History History of Family Medical Conditions: Yes Family Medical History: Hypertension Social History Does patient currently use any type of tobacco product: Yes Have you used tobacco products in the last 12 months: Yes Type of Tobacco Use: Cigarettes Does any household member use tobacco: Yes Alcohol Use: None Do you use any recreational Drugs:: No Lives With: Family Lives Where: Home Travel Risk Coronavirus risk:travel/contact w/high risk person: No Has patient experienced Coronavirus symptoms: No Infectious screening In the last 2 months have you had wt loss of >10#?: NO Have you had fever, night sweats or hemotysis?: Yes Have you traveled outside the country in the last 6 months?: No Isolation: Standard ROS Review of Systems Constitutional: No Symptoms Reported and See HPI; negative Fever, Weakness and Fatigue Eyes: No Symptoms Reported and See HPI; negative Blurred Vision and Diplopia ENTM: No Symptoms Reported and See HPI; negative Nose Discharge and Nose Congestion Respiratoy: See HPI and Short of Breath; negative Moist Cough and Wheezing Cardiovascular: See HPI and Chest Pain; negative Edema and Palpitations Gastrointestinal/Abdominal: No Symptoms Reported and See HPI; negative Abdominal Pain, Nausea and Vomiting Genitourinary: No Symptoms Reported and See HPI; negative Dysuria, Frequency and Hematuria Neurological: No Symptoms Reported and See HPI; negative Headache, Weakness and Dizziness Musculoskeletal: No Symptoms Reported and See HPI; negative Back Pain Integumentary: No Symptoms Reported and See HPI; negative Change in Color, Rash and Juandice Hematologic/Lymphatic: No Symptoms Reported and See HPI; negative Easy Bruising and Swollen Glands Endocrine: No Symptoms Reported and See HPI; negative Increased Thirst and Increased Urine Psychiatric: No Symptoms Reported and See HPI All Other Systems: Reviewed and Negative PE Vitals Vitals: Temperature 97.9 F Pulse Rate 67 Respiratory Rate 18 Blood Pressure [Right Arm] 143/68 Blood Pressure [Left Arm] 100/51 Blood Pressure [Standing] 114/61 Blood Pressure [Sitting] 107/59 Blood Pressure [Lying] 118/58 Blood Pressure 124/58 O2 Sat by Pulse Oximetry 95 General Limitations: No Limitations General Appearance: Alert and In No Apparent Distress Head Head Exam: Normal Inspection Eyes Eye exam: Normal Appearance and PERRL; negative Scleral Icterus and Conjunctival Injection ENT ENT Exam: Normal Exam, Normal Oropharynx, Normal External Ear Exam and TM's Normal Bilaterally Chest Chest Inspection: Normal Inspection and Symmetric Chest Wall Rise; negative Tenderness Respiratory Respiratory Exam: Normal Lung Sounds Bilat; negative Accessory Muscle Use, Chest Wall Tenderness and Respiratory Distress Respiratory Exam: Bilateral: Clear to Auscultation Cardiovascular Cardiovascular Exam: Regular Rate, Normal Rhythm and Normal Heart Sounds; negative Systolic Murmur and Diastolic Murmur Pulse: Normal Edema: Normal Abdominal Exam Abdominal Exam: Normal Inspection, Normal Bowel Sounds and Soft; negative Tenderness Extremities Extremities Exam: Normal Inspection and Normal Capillary Refill; negative Tenderness, Edema and Calf Tenderness Back Back Exam: Normal Inspection; negative (R) CVA Tenderness and (L) CVA Tenderness Neurologic Neurological Exam: Alert, Oriented X3 and CN II-XII Intact; negative Motor Sensory Deficit Psychiatric Psychiatric Exam: Normal Affect and Normal Mood Skin Skin Exam: Warm, Dry, Intact and Normal Color MDM Differential Diagnosis Differential Diagnosis: Angina, Chest Wall Pain, CHF, Costochondritis, Myocardial Infarction, Pericarditis, Pleuritis, Pancreatitis, Pneumonia, Pneumothorax and Pulmonary Embolus COURSE Treatment Treatment: SEE ORDERS. Education/Counseling Education/Counseling: Patient Educated On: Diagnosis ROR Labs Reviewed Laboratory Results Reviewed?: Yes Result Diagrams: 04/24/20 04:15 04/24/20 04:15 Laboratory: WBC 6.6 X10^3/uL (3.6-10.0) 04/23/20 11:10 RBC 4.79 X10^6/uL (3.5-5.4) 04/23/20 11:10 Hgb 15.5 g/dL (12.0-16.0) 04/23/20 11:10 Hct 45.1 % (36.0-47.0) 04/23/20 11:10 MCV 94.1 fL (80.0-100.0) 04/23/20 11:10 MCH 32.4 pg (27.0-34.0) 04/23/20 11:10 MCHC 34.5 g/dL (33.0-35.0) 04/23/20 11:10 RDW 13.3 % (11.6-16.5) 04/23/20 11:10 Plt Count 382 X10^3/uL (150.0-450.0) 04/23/20 11:10 MPV 7.3 fL (7.4-11.0) L 04/23/20 11:10 Neut % (Auto) 75.0 % (42.0-75.0) 04/23/20 11:10 Lymph % (Auto) 17.6 % (21.0-51.0) L 04/23/20 11:10 [place] % (Auto) 5.9 % (0.0-13.0) 04/23/20 11:10 Eos % (Auto) 0.4 % (0.9-2.9) L 04/23/20 11:10 Baso % (Auto) 1.1 % (0.2-1.0) H 04/23/20 11:10 Neut # (Auto) 5.0 x10^3/uL (2.2-4.8) H 04/23/20 11:10 Lymph # (Auto) 1.2 X10^3/uL (1.3-2.9) L 04/23/20 11:10 [place] # (Auto) 0.4 x10^3/uL (0.3-0.8) 04/23/20 11:10 Eos # (Auto) 0.0 x10^3/uL (0.0-0.2) 04/23/20 11:10 Baso # (Auto) 0.1 X10^3/uL (0.0-0.1) 04/23/20 11:10 Absolute Nucleated RBC 0.1 /100WBC 04/23/20 11:10 D-Dimer < 100 ng/mL (0-400) 04/23/20 11:10 Sodium 136 mmol/L (136-145) 04/23/20 11:10 Corrected Sodium TNP 04/23/20 11:10 Potassium 4.1 mmol/L (3.5-5.1) 04/23/20 11:10 Chloride 100 mmol/L (98-107) 04/23/20 11:10 Carbon Dioxide 30.0 mmol/L (21-32) 04/23/20 11:10 BUN 17 mg/dL (7-18) 04/23/20 11:10 Creatinine 0.84 mg/dL (0.55-1.02) 04/23/20 11:10 Est GFR (MDRD) Af Amer > 60 (>60) 04/23/20 11:10 Est GFR (MDRD) Non-Af > 60 (>60) 04/23/20 11:10 Glucose 94 mg/dL (65-99) 04/23/20 11:10 Calcium 9.3 mg/dL (8.5-10.1) 04/23/20 11:10 Corrected Calcium TNP 04/23/20 11:10 Total Bilirubin 0.50 mg/dL (0.2-1.0) 04/23/20 11:10 AST 18 Units/L (15-37) 04/23/20 11:10 ALT 24 Units/L (12-78) 04/23/20 11:10 Alkaline Phosphatase 93 Units/L (46-116) 04/23/20 11:10 Creatine Kinase 142 Units/L (26-192) 04/23/20 11:10 CK-MB (CK-2) 5.4 ng/mL (0-4.0) H* 04/23/20 11:10 CK/CKMB % Calc 3.8 % (<4) 04/23/20 11:10 Troponin I < 0.02 ng/mL (0-1.5) 04/23/20 11:10 B-Natriuretic Peptide 12.8 pg/mL (0-79) 04/23/20 11:10 Total Protein 7.6 g/dL (6.4-8.2) 04/23/20 11:10 Albumin 3.9 g/dL (3.4-5.0) 04/23/20 11:10 Globulin 3.7 g/dL (2.5-4.5) 04/23/20 11:10 Albumin/Globulin Ratio 1.1 Ratio (1.1-2.1) 04/23/20 11:10 XRAY XRAY Interpreted by: Radiologist (REPORT NOTED AND DISCUSSED WITH PATIENT,) and Self (NO ACUTE FINDINDS.) EKG Rate: 55 [place]: Normal Rhythm: SB Block: None Hypertrophy: None ST: Normal Opioid Opioid Risk Tool Age (Erick box if 16-45): No History of Preadolescent Sexual Abuse: No Total: 0 Total Score Risk Category: Low Risk Copyright: Nirav CLAUDIO predicting aberrant behaviors Diagnosis Discharge Problem: Chest pain, rule out acute myocardial infarction Coronary artery disease Qualifiers: Coronary Disease-Associated Artery/Lesion type: unspecified vessel or lesion type [place] vs. transplanted heart: [place] heart Associated angina: with unspecified angina Qualified Code(s): I25.119 - Atherosclerotic heart disease of [place] coronary artery with unspecified angina pectoris Instructions Forms: Excuse From Work Precautions for COVID19 Patient Portal Social Distancing
[2020-04-23] MEDS ORDERED: NITROSTAT SL PRN (10:53)
[2020-04-23] MEDS ORDERED: ASPIRIN 81 MG CHEWTAB PO ONE (10:55)
[2020-04-23] MEDS ORDERED: ASPIRIN ONE (11:04)
--- NOTE | 2020-04-23 11:17 | RAD ---
HISTORYChest painSTUDYCHEST, 1 [id number] patient is status post median sternotomy and CABG. The heart is within normal limits in size. The kvng are normal. The aorta is calcified. The lungs are hyperinflated but free of acute alveolar infiltrates. No pleural effusions are identified. The bony thorax is unremarkable.IMPRESSIONLungs hyperinflated but clearElectronically signed by: DAVION MORTON (April 23, 2020 11:16:03)
[2020-04-23 11:19] LABS: BASOPHILS # (AUTO) 0.1 X10^3/uL (0.0-0.1); BASOPHILS % (AUTO) 1.1 % (0.2-1.0); EOSINOPHILS % (AUTO) 0.4 % (0.9-2.9); HEMATOCRIT 45.1 % (36.0-47.0); HEMOGLOBIN 15.5 g/dL (12.0-16.0); LYMPHOCYTES # (AUTO) 1.2 X10^3/uL (1.3-2.9); LYMPHOCYTES % (AUTO) 17.6 % (21.0-51.0); MEAN CORPUSCULAR HEMOGLOBIN 32.4 pg (27.0-34.0); MEAN CORPUSCULAR HGB CONC 34.5 g/dL (33.0-35.0); MEAN CORPUSCULAR VOLUME 94.1 fL (80.0-100.0); MEAN PLATELET VOLUME 7.3 fL (7.4-11.0); MONOCYTES # (AUTO) 0.4 x10^3/uL (0.3-0.8); MONOCYTES % (AUTO) 5.9 % (0.0-13.0); PLATELET COUNT 382 X10^3/uL (150.0-450.0); RED BLOOD COUNT 4.79 X10^6/uL (3.5-5.4); RED CELL DISTRIBUTION WIDTH 13.3 % (11.6-16.5); WHITE BLOOD COUNT 6.6 X10^3/uL (3.6-10.0)
[2020-04-23 11:35] LABS: BLOOD UREA NITROGEN 17 mg/dL (7-18); CALCIUM 9.3 mg/dL (8.5-10.1); CHLORIDE 100 mmol/L (98-107); CREATININE 0.84 mg/dL (0.55-1.02); SODIUM 136 mmol/L (136-145); TROPONIN I < 0.02 ng/mL (0-1.5); eGFR NON BLACK RACES > 60 (>60)
[2020-04-23 11:58] LABS: ALANINE AMINOTRANSFERASE 24 Units/L (12-78); ALBUMIN 3.9 g/dL (3.4-5.0); ALKALINE PHOSPHATASE 93 Units/L (46-116); ASPARTATE AMINO TRANSFERASE 18 Units/L (15-37); CKMB % 3.8 % (<4); CREATINE KINASE 142 Units/L (26-192); TOTAL PROTEIN 7.6 g/dL (6.4-8.2)
[2020-04-23 12:03] LABS: CREATINE KINASE MB 5.4 ng/mL (0-4.0)
[2020-04-23] MEDS: NS 1000 ML 1,000 ML IV SCH (14:39)
[2020-04-23 18:22] LABS: CKMB % 3.9 % (<4); CREATINE KINASE 127 Units/L (26-192); TROPONIN I < 0.02 ng/mL (0-1.5)
[2020-04-23 18:24] LABS: CREATINE KINASE MB 4.9 ng/mL (0-4.0)
[2020-04-23] MEDS: PROTONIX INJ 40 MG VIAL IVP SCH (21:00)
[2020-04-23] MEDS: DUONEB 0.5 MG/3 MG (3 mL) NEB SCH (21:20)
[2020-04-23 21:55] LABS: BILIRUBIN,URINE NEGATIVE (NEGATIVE); BLOOD/HEMOGLOBIN,URINE NEGATIVE (NEGATIVE); GLUCOSE, URINE NEGATIVE (NEGATIVE); KETONES,URINE NEGATIVE (NEGATIVE); LEUKOCYTE ESTERASE ,URINE 1+ (NEGATIVE); NITRITES,URINE NEGATIVE (NEGATIVE); PH,URINE 6.5 (5.0 - 8.0); PROTEIN,URINE NEGATIVE (NEGATIVE); UROBILINOGEN,URINE NORMAL (NORMAL)
[2020-04-23 22:05] LABS: APPEARANCE,URINE CLEAR (CLEAR); COLOR,URINE YELLOW (YELLOW)
[2020-04-23 22:06] LABS: BACTERIA,URINE TRACE /HPF (NEGATIVE); RBC,URINE NONE SEEN /HPF (0-3); SQUAMOUS EPITHELIAL CELL,UR FEW /HPF (NEGATIVE)
[2020-04-23] MEDS ORDERED: RESTORIL CAP 15 MG PO PRN (22:25)
[2020-04-24 00:06] LABS: CKMB % 3.9 % (<4); CREATINE KINASE 119 Units/L (26-192); TROPONIN I < 0.02 ng/mL (0-1.5)
[2020-04-24 00:09] LABS: CREATINE KINASE MB 4.6 ng/mL (0-4.0)
[2020-04-24 05:34] LABS: BASOPHILS # (AUTO) 0.1 X10^3/uL (0.0-0.1); BASOPHILS % (AUTO) 1.2 % (0.2-1.0); EOSINOPHILS # (AUTO) 0.2 x10^3/uL (0.0-0.2); EOSINOPHILS % (AUTO) 2.8 % (0.9-2.9); HEMATOCRIT 39.4 % (36.0-47.0); HEMOGLOBIN 13.5 g/dL (12.0-16.0); LYMPHOCYTES # (AUTO) 2.8 X10^3/uL (1.3-2.9); LYMPHOCYTES % (AUTO) 43.6 % (21.0-51.0); MEAN CORPUSCULAR HEMOGLOBIN 32.6 pg (27.0-34.0); MEAN CORPUSCULAR HGB CONC 34.3 g/dL (33.0-35.0); MEAN PLATELET VOLUME 8.1 fL (7.4-11.0); MONOCYTES # (AUTO) 0.5 x10^3/uL (0.3-0.8); MONOCYTES % (AUTO) 7.9 % (0.0-13.0); NEUTROPHILS # (AUTO) 2.9 x10^3/uL (2.2-4.8); NEUTROPHILS % (AUTO) 44.5 % (42.0-75.0); PLATELET COUNT 312 X10^3/uL (150.0-450.0); RED BLOOD COUNT 4.14 X10^6/uL (3.5-5.4); RED CELL DISTRIBUTION WIDTH 13.6 % (11.6-16.5); WHITE BLOOD COUNT 6.5 X10^3/uL (3.6-10.0)
[2020-04-24 05:41] LABS: ALANINE AMINOTRANSFERASE 15 Units/L (12-78); ALBUMIN 3.1 g/dL (3.4-5.0); ALKALINE PHOSPHATASE 73 Units/L (46-116); ASPARTATE AMINO TRANSFERASE 17 Units/L (15-37); BLOOD UREA NITROGEN 14 mg/dL (7-18); CALCIUM 8.2 mg/dL (8.5-10.1); CARBON DIOXIDE 29.1 mmol/L (21-32); CHLORIDE 102 mmol/L (98-107); CHOL/HDL RATIO 2.2 (0.0-5.0); CHOLESTEROL 206 mg/dL (0-200); COR CA(FOR HYPOALB) 8.9 mg/dL (8.5-10.1); CREATININE 0.69 mg/dL (0.55-1.02); HDL CHOLESTEROL 92 mg/dL (40-60); MAGNESIUM 2.1 mg/dL (1.7-2.9); SODIUM 137 mmol/L (136-145); TRIGLYCERIDES 55 mg/dL (0-150); eGFR NON BLACK RACES > 60 (>60)
[2020-04-24] MEDS: NS 1000 ML 1,000 ML IV SCH ×2 (06:15→16:33)
[2020-04-24] MEDS: PROTONIX INJ 40 MG VIAL IVP SCH (08:21)
[2020-04-24] MEDS ORDERED: LOVENOX INJ 40 MG SYR SC SCH (09:00)
--- NOTE | 2020-04-24 09:05 | CT ---
HISTORYChest pain, shortness of breathSTUDYCTA CHESTTechnique: Axial post-contrast images with coronal and sagittal reformats. 3 dimensional maximum intensity projection images were obtained and evaluated. Dose reduction procedures were used with mA/kv adjusted for body size.[id number] is no evidence for acute pulmonary thromboembolic disease. Examination of the mediastinum demonstrated no evidence for mediastinal masses, enlarged mediastinal or enlarged hilar adenopathy or significant aortic abnormality. No pleural effusions are identified. No chest wall or axillary abnormality is identified. Those portions of the upper abdominal organs visualized were within normal limits. A small left hip attic lobe cyst is present. Examination of the lung batista again demonstrated diffuse severe changes of centrilobular emphysema. There is a focus of atelectasis and pleural parenchymal scarring posteriorly in the left lower lobe unchanged from the prior examination. No masses, infiltrates, areas of consolidation are identified. There is a stable subpleural posterior right upper lobe pulmonary nodule likely benign. No bronchiectasis is identified. No significant peribronchial thickening is identified.IMPRESSIONNo evidence for acute pulmonary thromboembolic diseaseRelatively severe diffuse centrilobular emphysematous lung changesBenign right upper lobe subpleural pulmonary nodulePleural parenchymal scarring posteriorly in the left una thorax, stableElectronically signed by: DAVION MORTON (April 24, 2020 09:03:33)
[2020-04-24] MEDS: DUONEB 0.5 MG/3 MG (3 mL) NEB SCH ×2 (09:45→13:13)
[2020-04-24] MEDS ORDERED: POTASSIUM CHL 60 MEQ/NS 0.45% 500 ML IV PRN (09:59)
[2020-04-24] MEDS ORDERED: POTASSIUM CHLORIDE LIQ 20 MEQ UDC PO PRN (09:59)
[2020-04-24] MEDS ORDERED: POTASSIUM CHL 40 MEQ/NS 0.45% 500 ML IV PRN (09:59)
[2020-04-24] MEDS ORDERED: MICRO K EXTEN CAP 10 MEQ PO PRN (09:59)
[2020-04-24] MEDS ORDERED: K-RIDER 10 MEQ/NS 100 ML 10 MEQ/100 ML BAG IV PRN (09:59)
[2020-04-24] MEDS ORDERED: KLOR-CON PO PRN (09:59)
[2020-04-24] MEDS ORDERED: K-DUR TAB 20 MEQ PO PRN (09:59)
--- NOTE | 2020-04-24 13:16 | DR.H&P ---
H&P - History & Physical for Day of: H&P Date: 04/23/20 - Chief Complaint Chief Complaint: chest pain, shortness of breath on exertion - History of Present Illness History of Present Illness: PT IS 74 WF ER ADMISSION AFTER PRESENTING WITH CO C HEST PAIN WHILE AT REST. PT REPORTS MCKEON, "CANT DO ANYTHING WITHOUT GIVEN OUT". PT HAS PMH OF CAD WITH CABG IN 1989. PT REPORTS LAST HEART CATH PER DR GEORGES WAS OVER 5 YEARS AGO. PT DOES HAVE COPD AND RECENTLY HAD COPD EXACERBATION AND NEGATIVE COVID SWAB. PT REPORTS IMPROVED COUGH AND NO FEVER. PT ADMITTED FOR TREATMENT OF ACUTE ILLNESS - Past Medical History Past Medical History: Coronary Artery Disease, Dyslipidemia, Depression, Anxiety, Hypothyroidism, COPD Additional Medical History: BREAST CANCER - Past Surgical History Surgical History: CABG/Valve Surgery, Cholecystectomy, Hysterectomy, Mastectomy, Other Additional Surgical History: MASTECTOMY - Family History Family Medical History: Hypertension - Social History Does patient currently use any type of tobacco product: Yes Have you used tobacco products in the last 12 months: Yes Type of Tobacco Use: Cigarettes Does any household member use tobacco: Yes Alcohol Use: None Drug Use: None - Medications Home Medications: Sulfa (Sulfonamide Antibiotics) [SULFA] Allergy (Verified 12/19/17 00:40) CONTINUE taking the following medications ipratropium-albuterol [Combivent Respimat] 2 puff INHALATION QID 04/23/20 [History] lorazepam 1 mg PO BID PRN 04/23/20 [History] nifedipine [Procardia XL] 30 mg PO DAILY 04/23/20 [History] - Review of Systems Constitutional: Weakness Eyes: No Symptoms Reported ENT: No Symptoms Reported Respiratory: SOB with Excertion Cardiovascular: Chest Pain Gastrointestinal: No Symptoms Reported Genitourinary: No Symptoms Reported Musculoskeletal: No Symptoms Reported Skin: No Symptoms Reported Neurological: Weakness - Physical Exam Vital Signs: Temperature 97.8 F Pulse Rate [Left Brachial] 64 Pulse Rate 68 Respiratory Rate 18 Blood Pressure [Right Arm] 143/68 Blood Pressure [Left Arm] 128/60 Blood Pressure [Standing] 114/61 Blood Pressure [Sitting] 107/59 Blood Pressure [Lying] 118/58 Blood Pressure 130/62 O2 Sat by Pulse Oximetry 95 Oriented: Normal Eyes: Normal Ear: Normal Nose: Normal Throat: Normal Respiratory: RLL Diminished, LLL Diminished Cardiovascular: Bradycardia. negative: Edema : Normal Auscultation: Bowel Sounds: Normal, Absent Palpation: Normal Tenderness: Normal Skin: Decreased [place] Musculoskeletal: Back:Lumbar Psychiatric: Anxiety Affect: Anxious Speech Pattern: Clear, Appropriate - Assessment/Plan (1) Chest pain, rule out acute myocardial infarction Status: Acute Plan: ADMIT SERIAL CE AND EKG. CTA CHEST R/O PE, BP CONTROL. ADMISSION LABS, CXR ON ADMISSION. TELEMETRY, SUPPLEMENTAL O2, RESP THERAPY (2) MCKEON (dyspnea on exertion) Status: Acute (3) Coronary artery disease Status: Acute (4) COPD (chronic obstructive pulmonary disease) Qualifiers: Status: Chronic (5) GERD (gastroesophageal reflux disease) Status: Chronic (6) Hyperlipidemia Status: Chronic - Allergies Allergies/Adverse Reactions: Allergies Allergy/AdvReac Type Severity Reaction Status Date / Time Sulfa (Sulfonamide Allergy Verified 12/19/17 00:40 Antibiotics) [SULFA]
[2020-04-24 15:18] VITALS: BMI 18.8
[2020-04-24 17:11] VITALS: BP 115/56
== END 2020-04-24 17:35 | disposition short-term general hospital (02) ==
LOC: ER 10:39 → MED/SURG 10:39
PROVIDERS: ADMIT Internal Medicine; ATTEND Internal Medicine
DX: E78.2 Mixed hyperlipidemia; R94.31 Abnormal electrocardiogram [ECG] [EKG]; R26.89 Other abnormalities of gait and mobility; Z79.01 Long term (current) use of anticoagulants; R06.02 Shortness of breath; R07.89 Other chest pain; F41.8 Other specified anxiety disorders; J44.9 Chronic obstructive pulmonary disease, unspecified; I25.119 Atherosclerotic heart disease of native coronary artery with unspecified angina pectoris
CPT/HCPCS: 36415; 71010; 71045; 71275; 80053; 80061; 81001; 82550; 82553; 83735; 83880; 84484; 85025; 85378; 93005; 94640; 94760; 96365; 96372; 97161; 99284; A4222; C9113; G0378; J1650; J7030; J7620